=== PATIENT | female | born 1975 | race Caucasian/White ===

== ENCOUNTER 2020-05-28 06:35 | Outpatient (CLI) | payer OTHER, SELFPAY | END 2020-05-28 06:36 | disposition home or self-care (01) | PROVIDERS: PCP Internal Medicine; Visit Provider Internal Medicine | DX: E03.9 Hypothyroidism, unspecified (principal) | CPT/HCPCS: 36415; 84443 ==

== ENCOUNTER 2021-02-27 07:32 | Outpatient (CLI) | payer OTHER, SELFPAY ==
[2021-02-27 08:15] LABS: Alanine Aminotransferase 20 U/L (4-35); Alkaline Phosphatase 114 U/L (38-126); Anion Gap 8 mmol/L (8-16); Aspartate Amino Transferase 23 U/L (14-36); Bilirubin,Total 0.3 mg/dL (0.2-1.3); Blood Urea Nitrogen 10 mg/dL (7-17); Calcium 9.1 mg/dL (8.4-10.2); Carbon Dioxide 27 mmol/L (22-30); Chloride 106 mmol/L (98-107); Cholesterol 205 mg/dL (0-200); Estimated Glomerular Filt Rate > 60; Glucose 106 mg/dL (65-110); HDL Direct 37 mg/dL; Potassium 3.5 mmol/L (3.4-5.0); Sodium 141 mmol/L (137-145); Triglycerides 213 mg/dL (<150)
[2021-02-27 08:26] LABS: LDL Cholesterol Direct 96 mg/dL
[2021-02-27 09:48] LABS: Vitamin D 25 Hydroxy 30.8 ng/mL
== END 2021-02-27 07:33 | disposition home or self-care (01) ==
PROVIDERS: PCP Internal Medicine; Visit Provider Nurse Practitioner
DX: E03.9 Hypothyroidism, unspecified (principal); Z13.21 Encounter for screening for nutritional disorder
CPT/HCPCS: 36415; 80053; 80061; 82306; 84443

== ENCOUNTER 2021-05-20 09:40 | Outpatient (CLI) | payer OTHER, SELFPAY ==
[2021-05-20 10:54] LABS: Thyroid Stimulating Hormone 0.189 uIU/mL (0.465-4.680)
== END 2021-05-20 09:41 | disposition home or self-care (01) ==
LOC: ANHLAB 09:41
PROVIDERS: PCP Internal Medicine; Visit Provider Nurse Practitioner
DX: E03.9 Hypothyroidism, unspecified (principal)
CPT/HCPCS: 36415; 84443

== ENCOUNTER 2021-07-30 14:16 | Outpatient (CLI) | payer OTHER, SELFPAY ==
[2021-07-30 16:46] LABS: Free T4 Free Thyroxine 1.58 ng/mL (0.78-2.19)
== END 2021-07-30 14:17 | disposition home or self-care (01) ==
PROVIDERS: PCP Internal Medicine; Visit Provider Nurse Practitioner
DX: E03.9 Hypothyroidism, unspecified (principal)
CPT/HCPCS: 36415; 84439; 84443

== ENCOUNTER 2021-10-23 14:44 | Emergency (ER) | payer OTHER, SELFPAY ==
[2021-10-23 14:49] VITALS: BP 138/74; PULSE 112; RESP 18; TEMP 36.4; O2SAT 99
[2021-10-23] MEDS: KETOROLAC 30 MG/ML VIAL (*BKC) IV PUSH (17:11)
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
[2021-10-23] MEDS: SODIUM CHLORIDE 0.9% IV 1,000 ML 999 ML IV CONT (17:22)
[2021-10-23] MEDS: diazePAM INJ (*CRX) 10 MG/2 ML SYRINGE 5 MG IV PUSH (17:41)
[2021-10-23 19:20] VITALS: BP 143/72; PULSE 84; RESP 18; O2SAT 100
== END 2021-10-23 19:30 | disposition home or self-care (01) ==
PROVIDERS: Emergency Provider Emergency Medicine; PCP Internal Medicine
DX: M62.830 Muscle spasm of back (principal); E03.9 Hypothyroidism, unspecified; G25.81 Restless legs syndrome; F41.9 Anxiety disorder, unspecified; Y04.2XXA Assault by strike against or bumped into by another person, initial encounter
CPT/HCPCS: 96361; 96374; 96375; 99284; J1885; J3360; J7030

== ENCOUNTER 2022-02-10 13:16 | Outpatient (CLI) | payer OTHER, SELFPAY ==
[2022-02-10 14:48] LABS: Thyroid Stimulating Hormone 0.215 uIU/mL (0.465-4.680)
== END 2022-02-10 13:17 | disposition home or self-care (01) ==
LOC: ANHLAB 13:18
PROVIDERS: PCP Internal Medicine; Visit Provider Nurse Practitioner
DX: E03.9 Hypothyroidism, unspecified (principal)
CPT/HCPCS: 36415; 84443

== ENCOUNTER 2022-03-27 08:42 | Outpatient (CLI) | payer OTHER, SELFPAY ==
[2022-03-27 10:06] LABS: Thyroid Stimulating Hormone 0.274 uIU/mL (0.465-4.680)
[2022-03-27 10:23] LABS: Hepatitis C Virus Antibody Negative (Negative)
== END 2022-03-27 08:43 | disposition home or self-care (01) ==
PROVIDERS: PCP Internal Medicine; Visit Provider Nurse Practitioner
DX: Z20.5 Contact with and (suspected) exposure to viral hepatitis (principal); E03.9 Hypothyroidism, unspecified
CPT/HCPCS: 36415; 84439; 84443; 86803

== ENCOUNTER 2022-05-02 15:46 | Emergency (ER) | payer OTHER, SELFPAY ==
--- NOTE | ~2022-05-02 | XR_ITS ---
XR hand LT min 3V DATE: 05/02/2022 16:23 INDICATION: Roller skating today, fell. Left wrist pain. TECHNIQUE: 3 views COMPARISON: None FINDINGS: There is a mildly comminuted intra-articular fracture of the distal radius without signific ant displacement or angulation. No other fracture or dislocation. IMPRESSION: Mildly comminuted intra-articular fracture of distal radius, without significant displace ment Reviewed, dictated and finalized at location A. ISHING SPECIALIST IMPRESSION: Mildly comminuted intra-articular fracture of distal radius, withou t significant displacement
--- NOTE | ~2022-05-02 | XR_ITS ---
XR wrist LT min 3V DATE: 05/02/2022 16:22 INDICATION: Patient fell rollerskating today. Left wrist and hand pain TECHNIQUE: 4 views of left wrist COMPARISON: None FINDINGS: Transverse nondisplaced distal radial metaphyseal fracture without apparent intra-articular extension.. No other fracture or dislocation. IMPRESSION: Mildly impacted distal radial metaphyseal fracture Reviewed, dictated and finalized at location A. SEALER
[2022-05-02 16:07] VITALS: BP 130/89; PULSE 126; RESP 16; TEMP 36.9; O2SAT 100
[2022-05-02] MEDS: HYDROcodone/acetaminophen (*CRX) 5-325 MG TABLET 1 TAB PO (16:55)
--- NOTE | 2022-05-02 16:55 | ED.UPPEXIN ---
HPI - Extremity Injury (Upper) General Chief Complaint: Extremity Injury, Upper Stated Complaint: left wrist injury Time Seen by Provider: 05/02/22 16:06 History of Present Illness HPI narrative: 46-year-old female presents emergency room for evaluation of left wrist pain. Patient states that she was rollerskating, when she lost her balance and fell backward onto her outstretched arm. Patient is complaining of left wrist pain that is worse with movement. Patient reported immediate swelling to the area Related Data Allergies Allergy/AdvReac Type Severity Reaction Status Date / Time naproxen Allergy Severe Itching Verified 03/27/22 07:10 and vomiting latex Allergy Intermediate Rash Verified 03/27/22 07:10 nickel Allergy Intermediate Rash Verified 03/27/22 07:10 Review of Systems Review of Systems: CONSTITUTIONAL: Denies fever, chills, or sweats. EYES: Denies visual changes, redness, or discharge. ENT: Denies rhinorrhea, congestion, sore throat, or otalgia. CARDIOVASCULAR: Denies chest pain, palpitations, or edema. RESPIRATORY: Denies cough or dyspnea. GASTROINTESTINAL: Denies abdominal pain, nausea, vomiting, or diarrhea. GENITOURINARY: Denies dysuria or hematuria. SKIN: Denies rash or itching. MUSCULOSKELETAL: Reports left wrist pain NEUROLOGIC: Denies headache, numbness, dizziness, or weakness. PSYCHIATRIC: Denies anxiety or depression. PMFSH Past Medical History Medical History Anxiety Hypothyroidism Restless legs syndrome Family History Family History Sibling Patient's sister is in good health Patient's brother is in good health Grandparent Cerebrovascular accident, Onset Age: 77 Family history of throat cancer, Onset Age: 85 Mother Family history of malignant neoplasm of breast in first degree relative Acute myocardial infarction Father Family history of mental disorder Family history of lymphoma Social History Social History Smoking status: Never smoker Second hand tobacco smoke exposure: No Alcohol intake: never Substance use: never Substance use type: does not use Exam Narrative: GENERAL: Well-appearing, well-nourished, no physical limitations, and in no acute distress. HEAD: Normocephalic, atraumatic. EYES: Conjunctivae normal, PERRLA and EOMI. CHEST: Clear to auscultation. No respiratory distress. No wheezes rales or rhonchi. HEART: Regular rate and rhythm. No murmur heard. Normal peripheral pulses. EXTREMITIES: left wrist: +TTP with STS to the distal radius, LROM due to pain. Neurovascular is intact distally. No snuffbox tenderness SKIN: Warm, dry, no rash. No noted wounds NEURO: No focal deficits. Alert and oriented x3. MAEW. CN's II-XI intact bilaterally, normal gait PSYCH: Cooperative. Normal mood and affect. Course Vital Signs Vital signs: Vital Signs Temperature 36.9 C 05/02/22 16:07 Pulse Rate 126 H 05/02/22 16:07 Respiratory Rate 16 05/02/22 16:07 Blood Pressure 130/89 05/02/22 16:07 Pulse Oximetry 100 05/02/22 16:07 Temperature 36.9 C 05/02/22 16:07 Pulse Rate 126 H 05/02/22 16:07 Respiratory Rate 16 05/02/22 16:07 Blood Pressure 130/89 05/02/22 16:07 Pulse Oximetry 100 05/02/22 16:07 Discharge Plan Discharge Clinical Impression: Closed left radial fracture Patient Disposition: Home, Self-Care Condition: Stable Instructions: Antibiotic Form, Arm Fracture in Adults (DC) Prescriptions: New hydrocodone-acetaminophen 5-325 mg tablet 1 tablet PO Q8H PRN (Reason: pain) Qty: 15 0RF No Action ibuprofen 600 mg tablet 600 mg PO TID Qty: 20 0RF buspirone 15 mg tablet 15 mg PO BID Qty: 180 1RF alprazolam 0.5 mg tablet 0.5 mg PO TID Qty: 90 1RF clonazepam [Klonopin] 1 mg tablet 1.5 mg PO DAILY Qty
--- NOTE | 2022-05-02 17:09 | PC.NURSE ---
pt. tolerated splint placement well. Good cap refill and finger movement on affected side. No further questions from patient.
== END 2022-05-02 17:16 | disposition home or self-care (01) ==
PROVIDERS: Emergency Provider Nurse Practitioner Family; PCP Nurse Practitioner
DX: S59.202A Unspecified physeal fracture of lower end of radius, left arm, initial encounter for closed fracture (principal); E03.9 Hypothyroidism, unspecified; W18.39XA Other fall on same level, initial encounter; Y93.51 Activity, roller skating (inline) and skateboarding
CPT/HCPCS: 29125; 73110; 73130; 99284; A4565; A9270

== ENCOUNTER 2022-06-23 11:21 | Outpatient (RCR) | payer OTHER, SELFPAY ==
--- NOTE | 2022-06-23 16:15 | PTOPEVDC ---
Assessment and note entered by Lindsey Gomez, PT, DPT Thank you for referring Adriana De Jesus to [facility].? An evaluation has been completed. No further treatment is needed. Evaluation Information Assessment Status Evaluation Diagnosis L radius fracture Onset 05/02/22 Subjective Information Pt states she was roller skating and fell causing her to hyperextend her wrist. She has been immobilized since then. She is currently wearing a sling when out in public and also when she starts to get nerve pain. She states she has nerve pain daily. She is wearing an immobilizer and a compression sleeve, she also has her wrist and hand wrapped d/t getting a pressure ulcer. Reported Pain Level Pain Score 5: Self Report Assessment PT Clinical Summary Adriana presents to therapy today for her initial evaluation with a diagnosis of a distal radius fracture. Today she demonstrates a significantly decreased active wrist motion in all directions when compared to her uninvolved side. Her active wrist flexion and extension is currently ~15 deg in each direction, both limited by pain. 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 She demonstrates decreased finger and hand motion as well, in all directions. She has a blister in her thenar webspace. Skilled therapy services are indicated to address the deficits noted above and to return to baseline function. It was recommended that the patient be evaluated by OT, she will participate in her prescribed HEP until an OT order is obtained. She will be discharged at this time pending OT eval. Plan of Care Interventions Hot Pack/Cold Pack,Manual Therapy,Neuro Re- education,Patient/Caregiver Educati,Therapeutic Activities,Therapeutic Exercise PT Services Indicated No Treatment Frequency and to be discharged from PT, be evaluated by OT Duration
== END 2022-06-24 15:49 | disposition home or self-care (01) ==
LOC: ANHGOSHPT 11:21
PROVIDERS: PCP Nurse Practitioner; Visit Provider Orthopaedic Surgery
DX: S52.552D Other extraarticular fracture of lower end of left radius, subsequent encounter for closed fracture with routine healing (principal)
CPT/HCPCS: 97110; 97161

== ENCOUNTER 2022-07-27 12:30 | Outpatient (RCR) | payer OTHER, SELFPAY ==
--- NOTE | 2022-07-01 15:10 | OTOPEVAL1 ---
Assessment and note entered by ELIZA Velázquez/Ghada Evaluation Information Assessment Status Evaluation Diagnosis L UE distal radius fracture Subjective Information Patient presents to outpatient OT for a L UE distal radius fracture on 05/02/2022 (8 weeks prior). Patient has been in a splint since injuring wrist. Patient reports the swelling in hand has gone down significantly, is still experiencing pain in wrist, and decreased strength and active ROM. Reported Pain Level Pain Score 6: Self Report Assessment OT Clinical Summary Adriana is a 46 year old female who presents to outpatient OT following a L UE distal radius fracture ~8weeks ago. Patient reports increased pain and stiffness in hand/wrist, decreased functional use of L UE. Patient is still wearing splint, removes at home when resting for short periods of time. Per MDs note is to start weaning out of splint in the next 2-4 weeks. 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 Patient will benefit from skilled OT for HEP instruction, modalities, manual therapy for increasing functional use of L UE for daily tasks. Plan of Care Interventions Therapeutic Exercise,Manual Therapy,Therapeutic Activities,Hot Pack/Cold Pack,Paraffin OT Services Indicated Yes Treatment Frequency and 1x/week, 5 weeks Duration These treatments will address the objective and functional deficits as defined above. The patient will be advanced safely and appropriately in order for the patient to progress towards his/her prior level of function. Additional exercises will be introduced and as well as a comprehensive home exercise program upon discharge, if needed, ?to ensure carryover of functional gains achieved in the clinic. This treatment plan has been reviewed and agreement upon by the patient.
--- NOTE | 2022-07-22 13:20 | PCOTNOTE ---
Patient called & cancelled scheduled appointment this date due to being sick.
--- NOTE | 2022-08-03 13:30 | PCOTNOTE ---
Patient did not show up for scheduled appointment this date. Patient called on Wednesday when therapist was out of office, unsure if she should come for re-evaluation today 08/03/2022. Therapist called patient this AM prior to appointment and left message for patient to still come to appointment on this date. Will attempt to call and re-schedule re-evaluation/discharge.
--- NOTE | 2022-08-19 14:15 | OTOPDC ---
Assessment and note entered by ELIZA Velázquez/Ghada Evaluation Information Assessment Status Discharge - Pt Not Present Assessment OT Clinical Summary Adriana is a 46 year old female who presents to outpatient OT following a L UE distal radius fracture. She attended x2 treatments with OT prior to needing a re-evaluation. Patient was released from ortho doctor and reports did not know if she needed to complete re-evaluation with therapy. Called and left message with patient prior to re- evaluation to still attend appointment. Patient did not show for re-evaluation and attempted to call patient x2 times with no answer following scheduled re-evaluation. Patient is to be discharged from skilled OT at this time. Plan of Care OT Services Indicated No
== END 2022-08-20 08:56 | disposition home or self-care (01) ==
LOC: ANHGOSHOT 12:30
PROVIDERS: PCP Nurse Practitioner; Visit Provider Orthopaedic Surgery
DX: S52.552D Other extraarticular fracture of lower end of left radius, subsequent encounter for closed fracture with routine healing (principal)
CPT/HCPCS: 97018; 97110; 97165

== ENCOUNTER 2024-01-06 13:31 | Emergency (ER) | payer OTHER, SELFPAY ==
--- NOTE | ~2024-01-06 | XR_ITS ---
EXAMINATION: XR ankle LT min 3V, XR foot LT min 3V DATE: 01/06/2024 14:49 INDICATION: Medial left foot and ankle bruising post twisting injury 2 days prior TECHNIQUE: 1. Anteroposterior, mortise, additional oblique and lateral view of the left ankle were obtained. 2. Dorsoplantar, two oblique and lateral views of the left foot were obtained. COMPARISON: None. FINDINGS: Alignment of the left foot and ankle is normal. No fracture or osteochondral lesion. Joint spaces are well maintained. No ankle joint effusion. The soft tissues are unremarkable. IMPRESSION: 1. Negative left foot and ankle radiographs. Reviewed, dictated and finalized at location A. IMPRESSION: 1. Negative left foot and ankle radiographs.
--- NOTE | ~2024-01-06 | XR_ITS ---
EXAMINATION: XR thoracic spine 3V, XR lumbar spine 2-3V DATE: 01/06/2024 14:49 INDICATION: Back pain post fall TECHNIQUE: 1. One AP, lateral and lateral swimmer's views of the thoracic spine were obtained. 2. AP, lateral and coned-down lateral lumbosacral views of the lumbar spine were obtained. COMPARISON: Two-view chest radiograph dated 10/07/2016 FINDINGS: 11 degrees thoracic levoscoliosis measured between T3 and T11 and 20 degree lumbar dextroscoliosis me asured between T11 and L5. Sagittal alignment is normal. Unchanged chronic minimal anterior wedging a t T7 and T8. Remaining thoracic and lumbar vertebral body heights are normal. Severe disc height loss at L5-S1. Moderate disc height loss at T4-T5 and T5-T6 and mild disc height loss at the remaining th oracic levels and at L1-L2 and L4-L5. Visualized portion of lungs are clear with no pleural effusion or pneumothorax. Heart size is normal. Cholecystectomy clips in right upper quadrant. Mild osteoarthr itis at the bilateral sacroiliac joints. IMPRESSION: 1. Chronic mild anterior wedging at T7 and T8. No acute osseous abnormality in the thoracic or lumbar spine. 2. Mild S-shaped scoliosis of the thoracic and lumbar spine spondylosis, severe at the lumbosacral ju nction, moderate at multiple levels in the mid midthoracic spine and otherwise mild. Reviewed, dictated and finalized at location A. IMPRESSION: 1. Chronic mild anterior wedging at T7 and T8. No acute osseous abnormality in the thoracic or lumbar spine. 2. Mild S-shaped scoliosis of the thoracic and lumbar spine spondylosis, severe at the lumbosacral junction, moderate at multiple levels in the mid midthoraci c spine and otherwise mild.
[2024-01-06 13:40] VITALS: BP 132/71; PULSE 137; RESP 20; TEMP 36.3; O2SAT 100
--- NOTE | 2024-01-06 13:48 | ED.FALL ---
HPI - Fall General Chief Complaint: Fall Stated Complaint: fell Wednesday, left ankle pain & back pain Time Seen by Provider: 01/06/24 14:41 Focused HPI: 48-year-old female presents to the emergency room for evaluation of injury sustained in a fall 2 days ago. Patient states her right foot slipped causing her to fall forward, moderate left ankle struck the concrete and then she landed on her back. Patient states left ankle and foot pain is worse with ambulation. GENERAL: Well-appearing, well-nourished, and in no acute distress. HEAD: Normocephalic, atraumatic. CHEST: Clear to auscultation. No respiratory distress. HEART: Regular rate and rhythm. NEURO: Alert and oriented x3. Patient screened in triage and initial orders placed. Additional care and disposition to be based upon diagnostic testing and treatment. Related Data Allergies Allergy/AdvReac Type Severity Reaction Status Date / Time latex Allergy Severe Rash Verified 07/01/23 10:31 naproxen Allergy Severe Itching Verified 07/01/23 10:31 and vomiting nickel Allergy Severe Rash Verified 07/01/23 10:31 Review of Systems Review of Systems: ROS unremarkable except for noted in HPI PMFSH Past Medical History Medical History Anxiety Closed extra-articular fracture of distal end of left radius Hypothyroidism Periodic limb movement disorder Restless legs syndrome Surgical History Surgical History History of cholecystectomy 2015 Family History Family History Sibling Patient's sister is in good health Patient's brother is in good health Grandparent Cerebrovascular accident, Onset Age: 77 Family history of throat cancer, Onset Age: 85 Mother Family history of malignant neoplasm of breast in first degree relative Acute myocardial infarction Father Family history of mental disorder Family history of lymphoma Social History Social History Smoking status: Never smoker Second hand tobacco smoke exposure: No Alcohol intake: never Substance use: never Substance use type: does not use Lack of Transportation: No Lack of Food: Never True Current Housing: I Have Housing Concerned About Future Housing: No Difficulty Paying Gas/Electric Bills: No Difficulty Paying for Meds: No Currently Unemployed: No Education: Bachelor's Degree Difficulty w/ Childcare or Family Care: No Living arrangements: with family Occupation/Education: occupation 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 HEAD: Normocephalic, atraumatic. EYES: Conjunctivae normal, PERRLA and EOMI. CHEST: Clear to auscultation. No respiratory distress. No wheezes rales or rhonchi. No tenderness. HEART: Regular rate and rhythm. No murmur heard. Normal peripheral pulses. BACK: Midline thoracic/lumbar tenderness, no step-offs, no bony abnormality; FROM EXTREMITIES: Left foot: +TTP with STS to medial malleolus, no obvious bony abnormality. No joint laxity. SKIN: Warm, dry, no rash. No noted wounds NEURO: No focal deficits. Alert and oriented x3. MAEW. CN's II-XI intact bilaterally, antalgic gait PSYCH: Cooperative. Normal mood and affect. Course Vital Signs Vital signs: Vital Signs Temperature 36.3 C L 01/06/24 13:40 Pulse Rate 137 H 01/06/24 13:40 Respiratory Rate 20 01/06/24 13:40 Blood Pressure 132/71 01/06/24 13:40 Pulse Oximetry 100 01/06/24 13:40 Temperature 36.3 C L 01/06/24 13:40 Pulse Rate 137 H 01/06/24 13:40 Respiratory Rate 20 01/06/24 13:40 Blood Pressure 132/
== END 2024-01-06 15:46 | disposition home or self-care (01) ==
PROVIDERS: Emergency Provider Nurse Practitioner Family; PCP Nurse Practitioner
DX: S90.02XA Contusion of left ankle, initial encounter (principal); S90.32XA Contusion of left foot, initial encounter; S30.0XXA Contusion of lower back and pelvis, initial encounter; S20.229A Contusion of unspecified back wall of thorax, initial encounter; E03.9 Hypothyroidism, unspecified; G25.81 Restless legs syndrome; G47.61 Periodic limb movement disorder; Z90.49 Acquired absence of other specified parts of digestive tract; M41.9 Scoliosis, unspecified; M47.816 Spondylosis without myelopathy or radiculopathy, lumbar region; M47.814 Spondylosis without myelopathy or radiculopathy, thoracic region; W01.0XXA Fall on same level from slipping, tripping and stumbling without subsequent striking against object, initial encounter
CPT/HCPCS: 72072; 72100; 73610; 73630; 99284

== ENCOUNTER 2024-04-24 13:15 | Outpatient (RCR) | payer OTHER, SELFPAY ==
--- NOTE | 2024-03-07 16:54 | OPREHPOC ---
Outpatient Therapy Plan of Care This is a Multidisciplinary Plan of Care that may contain components documented by all disciplines (PT, OT, and ST.) PT Problem 1 PT Problem #1 Knowledge Deficit PT Goal 1 Goal / Goal Update Pt to be IND with issued HEP Target Visit 10 PT Problem 2 PT Problem #2 Pain PT Goal 1 Goal / Goal Update Pt to report back pain no greater than 3/10 in the last week. Target Visit 10 PT Goal 2 Goal / Goal Update Pt to report a 80% return to PLOF. Target Visit 10 PT Problem 3 PT Problem #3 Impaired Functional Mobil PT Goal 1 Goal / Goal Update Pt to demonstrate a functional lift and carry with 20lb from ground level without an increase in pain. Target Visit 10 PT Problem 4 PT Problem #4 Impaired Range of Motion PT Goal 1 Goal / Goal Update Pt to report pain free active lumbar and passive hip ROM. Target Visit 10
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
--- NOTE | 2024-04-06 15:57 | PTOPPROG ---
Assessment and note entered by Lindsey Gomez, PT, DPT Evaluation Information Assessment Status Progress Diagnosis low back pain Subjective Information Pt states her back and hips are doing better, she has been popping less. She states she has improved on getting in/out of the car and walking. She states she can sit up straighter without pain. She feels like overall she can move better with less pain. States she has take care of her dogs with less pain. She states she still has issues picking stuff up off the ground, carrying in groceries, and doing heavy house work. Assessment PT Clinical Summary Pt presents to therapy today for her progress report following 8 visits of skilled therapy to treat her acute low back pain after a fall. Pt demonstrates improved lumbar and LE mobility with decreased pain reports. She demonstrates improved movement tolerance and core strength. She continues to have limitations with daily tasks like carrying in groceries and standing tolerance. Overall she is making good progress towards her therapy goals. Continuation of skilled therapy services are indicated to improve functional mobility, manage pain, and to return to [facility]. Plan of Care Interventions Electrical Stimulation,Gait Training,Hot Pack/Cold Pack,Manual Therapy,Neuro Re-education,Patient/ Caregiver Educati,Therapeutic Activities, Therapeutic Exercise PT Services Indicated Yes Treatment Frequency and 2x/wk for 4 visits Duration These treatments will address the objective and functional deficits as defined above. The patient will be advanced safely and appropriately in order for the patient to progress towards his/her prior level of function. Additional exercises will be introduced and as well as a comprehensive home exercise program upon discharge, if needed, ?to ensure carryover of functional gains achieved in the clinic. This treatment plan has been reviewed and agreement upon by the patient.
--- NOTE | 2024-04-21 09:15 | PCPTNOTE ---
Patient canceled this date due to scheduling too many.
--- NOTE | 2024-04-24 14:38 | PTOPDC ---
Assessment and note entered by Lindsey Gomez, PT, DPT Evaluation Information Assessment Status Discharge Diagnosis low back pain Subjective Information Pt states it feels like her pain is moving around a bit, but overall is better than when she started therapy. She has been taking more frequent consumer loan underwriter trips when carrying things into her home to help control pain. Pt states sleep is still hard because she cannot get comfortable when laying down. She states she has not gotten as many shooting pains as she was getting, still get burning sensations if she is shooting for too long . Pt states her neck pain has improved as well. She states Reported Pain Level Pain Score 4: Self Report Assessment PT Clinical Summary Pt presents to therapy today for her progress report following 11 visits of skilled therapy to treat her acute low back pain after a fall. Pt reports improving pain reports and demonstrates improved functional mobility during therapy treatments. She continues to report intermittent popping sensations during exercise and daily tasks but states these are not painful. Pt would like to continue working on her exercises IND at this time, she states she is unsure what is mechanical pain and what is psychosomatic pain.
== END 2024-04-24 14:53 | disposition home or self-care (01) ==
LOC: ANHGOSHPT 13:15
PROVIDERS: PCP Nurse Practitioner; Visit Provider Nurse Practitioner
DX: M41.9 Scoliosis, unspecified (principal); M47.816 Spondylosis without myelopathy or radiculopathy, lumbar region
CPT/HCPCS: 97014; 97110; 97140; 97161; 97530; G0283

== ENCOUNTER 2024-09-04 15:08 | Inpatient (IN) | payer OTHER, SELFPAY ==
--- NOTE | ~2024-09-04 | XR_ITS ---
XR elbow RT min 3V Ordering provider: Fadumo Baron History: . R elbow pain s/p dog bite . Comparison: December 15, 2018 FINDINGS: BONES: No acute fracture or dislocation. JOINT SPACES: Normal. SOFT TISSUES: Unremarkable. No definite joint effusion. IMPRESSION: No acute osseous abnormality of the right elbow. Reviewed, dictated and finalized at location A.
--- NOTE | ~2024-09-04 | XR_ITS ---
CHEST RADIOGRAPH CLINICAL HISTORY: cough . COMPARISON: 02/14/2020 TECHNIQUE: Single portable view of the chest. FINDINGS The cardiomediastinal silhouette is unremarkable. The lungs are clear. Visualized osseous structures and soft tissues are unremarkable. IMPRESSION: No focal infiltrate or effusion. Reviewed, dictated and finalized at location A.
[2024-09-04 15:39] VITALS: BP 141/69; PULSE 105; RESP 20; TEMP 36.4; O2SAT 100
--- NOTE | 2024-09-04 15:48 | ED.GENADULT ---
HPI - General Adult General Chief complaint: Unspecified <Fadumo Baron APRN - Last Filed: 09/04/24 15:52> Stated complaint: flu sx's, dog bite <Fadumo Baron APRN - Last Filed: 09/04/24 15:52> Time Seen by Provider: 09/04/24 19:45 <Fadumo Baron APRN - Last Filed: 09/04/24 15:52> Focused HPI: Patient is a 48-year-old female who presents to the ER with a dog bite to her right arm. She reports the dog bit her on on August 30, 2024. Patient reports she did not come in for evaluation since the site has swelled up and she started noticing pus coming from the site. Yesterday patient started experiencing flu-like symptoms. Patient endorses a medical history of anxiety due to the recent passing of her . She is unsure when she last received her tetanus shot. Patient reports and dog is up-to-date on immunizations. She denies any shortness of breath, decreased range of motion, numbness or tingling in her extremity. GENERAL: Well-appearing, well-nourished, and in no acute distress. HEAD: Normocephalic, atraumatic. CHEST: Clear to auscultation. ?No respiratory distress. HEART: Tachycardia, regular rhythm? NEURO: ?Alert and oriented x3. Patient screened in triage and initial orders placed.? ?Additional care and disposition to be based upon?diagnostic testing and treatment. <Fadumo Baron APRN - Last Filed: 09/04/24 15:52> History of Present Illness HPI narrative: Patient is a 48-year-old female who presents emergency department with chief complaint of dog bite to right upper extremity patient reports that she was bit on the 12th by her dog reported that she knows some redness and pus draining from the ear the patient also reports some upper respiratory symptoms and is concerned she may have the flu <Darvin Gibson MD - Last Filed: 09/04/24 21:06> Related Data Allergies/adverse reactions: Allergies Allergy/AdvReac Type Severity Reaction Status Date / Time latex Allergy Severe Rash Verified 09/04/24 19:13 naproxen Allergy Severe Itching Verified 09/04/24 19:13 and vomiting nickel Allergy Severe Rash Verified 09/04/24 19:13 adhesive tape AdvReac Intermediate Rash Verified 09/04/24 19:13 diphenhydramine (From AdvReac Intermediate rapid Verified 09/04/24 19:13 Benadryl) heart rate <Fadumo Baron APRN - Last Filed: 09/04/24 15:52> Review of Systems Review of Systems: A 10 system review of systems was completed on the patient and is negative except for what is stated in the HPI. Nursing and ancillary documentation was reviewed. <Darvin Gibson MD - Last Filed: 09/04/24 21:06> [facility] Past Medical History Medical History: Medical History BMI 29.0-29.9,adult Periodic limb movement disorder Closed extra-articular fracture of distal end of left radius Anxiety Hypothyroidism Restless legs syndrome <Fadumo Baron APRN - Last Filed: 09/04/24 15:52> Surgical History Surgical History: Surgical History History of cholecystectomy 2016 <Fadumo Baron APRN - Last Filed: 09/04/24 15:52> Family History Family History: Family History Sibling Patient's sister is in good health Patient's brother is in good health Grandparent Cerebrovascular accident, Onset Age: 77 Family history of throat cancer, Onset Age: 85 Mother Family history of malignant neoplasm of breast in first degree relative Acute myocardial infarction Father Family history of mental disorder Family history of lymphoma <Fadumo Baron APRN - Last Filed: 09/04/24 15:52> Social History Social History: Social History Smoking status: Never smoker Second hand tobacco smoke exposure: No Alcohol intake: never Substance use: never Substance use type: does not use Do You Feel Safe in your Home?: Yes Lack of Transportation: No Lack of Food: Never True Current Housing: I Have Housing Concerned About Future Housing: No Difficulty Paying Gas/Electric Bills: No Difficulty Paying for Meds: No Currently Unemployed: No Education: Bachelor's Degree Difficulty w/ Childcare or Family Care: No Living arrangements: alone Additional living arrangements comments: Recently Occupation/Education: unemployed 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 Gender identity (if verbalized by the patient): Female <Fadumo Baron APRN - Last Filed: 09/04/24 15:52> Exam Narrative: GENERAL: Well-appearing, well-nourished, and in no acute distress. HEAD: Normocephalic, atraumatic. EYES: PERRLA and EOMI. ENT: Nares clear, no rhinorrhea or epistaxis. Mucous membranes moist. NECK: Supple. CHEST: Clear to auscultation. No respiratory distress. HEART: Regular rate and rhythm. No murmur heard. Normal peripheral pulses. ABDOMEN: Soft, nontender, nondistended, normal active bowel sounds. EXTREMITIES: Normal range of motion. No edema. SKIN: Warm, dry, no rash. There is an area of erythema in the right upper extremity there is a small wound that has purulent drainage NEURO: No focal deficits. Alert and oriented x3. PSYCH: Normal mood and affect. <Darvin Gibson MD - Last Filed: 09/04/24 21:06> Course Vital Signs Vital signs: Vital Signs Temperature 36.4 C 09/04/24 15:39 Pulse Rate 105 H 09/04/24 15:39 Respiratory Rate 20 09/04/24 15:39 Blood Pressure 141/69 H 09/04/24 15:39 Pulse Oximetry 100 09/04/24 15:39 Temperature 36.6 C 09/04/24 19:19 Pulse Rate 89 09/04/24 19:19 Respiratory Rate 16 09/04/24 19:19 Blood Pressure 142/68 H 09/04/24 19:19 Pulse Oximetry 100 09/04/24 19:19 <Fadumo Baron APRN - Last Filed: 09/04/24 15:52> Vital Signs Temperature 36.4 C 09/04/24 15:39 Pulse Rate 105 H 09/04/24 15:39 Respiratory Rate 20 09/04/24 15:39 Blood Pressure 141/69 H 09/04/24 15:39 Pulse Oximetry 100 09/04/24 15:39 Temperature 36.6 C 09/04/24 19:19 Pulse Rate 89 09/04/24 19:19 Respiratory Rate 16 09/04/24 19:19 Blood Pressure 142/68 H 09/04/24 19:19 Pulse Oximetry 100 09/04/24 19:19 <Darvin Gibson MD - Last Filed: 09/04/24 21:06> Medical Decision Making MDM Narrative Medical decision making narrative: Differential diagnosis includes influenza, cellulitis, infected puncture wound Plain film x-ray showed no acute abnormality patient was influenza B positive Chest x-ray showed no focal infiltrate Patient will be started on Unasyn case was discussed with the hospitalist for admission <Darvin Gibson MD - Last Filed: 09/04/24 21:06> Vital Signs Vital Signs: Vital Signs Temperature 36.4 C 09/04/24 15:39 Pulse Rate 105 H 09/04/24 15:39 Respiratory Rate 20 09/04/24 15:39 Blood Pressure 141/69 H 09/04/24 15:39 Pulse Oximetry 100 09/04/24 15:39 Temperature 36.6 C 09/04/24 19:19 Pulse Rate 89 09/04/24 19:19 Respiratory Rate 16 09/04/24 19:19 Blood Pressure 142/68 H 09/04/24 19:19 Pulse Oximetry 100 09/04/24 19:19 <aFdumo Baron APRN - Last Filed: 09/04/24 15:52> Vital Signs Temperature 36.4 C 09/04/24 15:39 Pulse Rate 105 H 09/04/24 15:39 Respiratory Rate 20 09/04/24 15:39 Blood Pressure 141/69 H 09/04/24 15:39 Pulse Oximetry 100 09/04/24 15:39 Temperature 36.6 C 09/04/24 19:19 Pulse Rate 89 09/04/24 19:19 Respiratory Rate 16 09/04/24 19:19 Blood Pressure 142/68 H 09/04/24 19:19 Pulse Oximetry 100 09/04/24 19:19 <Darvin Gibson MD - Last Filed: 09/04/24 21:06> Lab Data Result diagrams: 09/04/24 18:52 09/04/24 18:52 <Fadumo Baron, KNITTING MACHINE MECHANIC - Last Filed: 09/04/24 15:52> Labs: Lab Results 09/04/24 Range/Units 18:52 WBC 4.0 L (4.5-10.0) K/mm3 RBC 4.01 L (4.2-5.4) M/mm3 Hgb 12.9 (12.0-15.0) g/dL Hct 38.6 (37.0-47.0) % MCV 96.3 (80-100) fl MCH 32.2 (26-34) pg MCHC 33.4 (32-36) g/dl RDW 12.4 (11.5-14.5) % Plt Count 216 (150-375) k/mm3 MPV 8.3 (7.4-10.4) fl Immature Gran % (Auto) 1.3 H (0-0.5) % Neut % (Auto) 54.6 (45.5-73.1) % Lymph % (Auto) 34.8 (18.3-44.2) % [place] % (Auto) 8.8 H (2.6-8.5) % Eos % (Auto) 0.0 (0-4.4) % Baso % (Auto) 0.5 (0.2-1.2) % Lymph # (Auto) 1.39 (0.9-3.2) K/mm3 [place] # (Auto) 0.4 (0.1-0.6) K/mm3 Eos # (Auto) 0.0 (0-0.3) K/mm3 Baso # (Auto) 0.0 (0.0-0.1) K/mm3 Abs Immat Gran (auto) 0.05 H (0.00-0.031) K/mm3 Absolute Neuts (auto) 2.2 (1.3-6.7) K/mm3 Absolute Nucleated RBC 0.000 (0.0-0.012) K/mm3 Nucleated RBC % 0.0 (0.0-0.2) % Sodium 139 (137-145) mmol/L Potassium 4.1 (3.4-5.0) mmol/L Chloride 104 (98-107) mmol/L Carbon Dioxide 24 (22-30) mmol/L Anion Gap 11 (4-12) mmol/L BUN 15 D (7-17) mg/dL Creatinine 0.73 (0.7-1.0) mg/dL Estim Creat Clear Calc 84 ml/min Estimated GFR > 60 (59 - ) Glucose 97 (65-110) mg/dL Lactic Acid < 0.5 L (0.7-2.0) mmol/L Calcium 9.0 (8.4-10.2) mg/dL Total Bilirubin 0.3 (0.2-1.3) mg/dL AST 41 H (14-36) U/L ALT 37 H (6-35) U/L Alkaline Phosphatase 125 (38-126) U/L Total Protein 8.0 (6.3-8.2) g/dL Albumin 4.2 (3.5-5.1) g/dL Influenza A (RT-PCR) Negative (Negative) Influenza B (RT-PCR) Positive A (Negative) RSV (RT-PCR) Negative (Negative) SARS-CoV-2 RNA (RT-PCR) Negative (Negative) <Fadumo Baron, KNITTING MACHINE MECHANIC - Last Filed: 09/04/24 15:52> Lab Results 09/04/24 Range/Units 18:52 WBC 4.0 L (4.5-10.0) K/mm3 RBC 4.01 L (4.2-5.4) M/mm3 Hgb 12.9 (12.0-15.0) g/dL Hct 38.6 (37.0-47.0) % MCV 96.3 (80-100) fl MCH 32.2 (26-34) pg MCHC 33.4 (32-36) g/dl RDW 12.4 (11.5-14.5) % Plt Count 216 (150-375) k/mm3 MPV 8.3 (7.4-10.4) fl Immature Gran % (Auto) 1.3 H (0-0.5) % Neut % (Auto) 54.6 (45.5-73.1) % Lymph % (Auto) 34.8 (18.3-44.2) % [place] % (Auto) 8.8 H (2.6-8.5) % Eos % (Auto) 0.0 (0-4.4) % Baso % (Auto) 0.5 (0.2-1.2) % Lymph # (Auto) 1.39 (0.9-3.2) K/mm3 [place] # (Auto) 0.4 (0.1-0.6) K/mm3 Eos # (Auto) 0.0 (0-0.3) K/mm3 Baso # (Auto) 0.0 (0.0-0.1) K/mm3 Abs Immat Gran (auto) 0.05 H (0.00-0.031) K/mm3 Absolute Neuts (auto) 2.2 (1.3-6.7) K/mm3 Absolute Nucleated RBC 0.000 (0.0-0.012) K/mm3 Nucleated RBC % 0.0 (0.0-0.2) % Sodium 139 (137-145) mmol/L Potassium 4.1 (3.4-5.0) mmol/L Chloride 104 (98-107) mmol/L Carbon Dioxide 24 (22-30) mmol/L Anion Gap 11 (4-12) mmol/L BUN 15 D (7-17) mg/dL Creatinine 0.73 (0.7-1.0) mg/dL Estim Creat Clear Calc 84 ml/min Estimated GFR > 60 (59 - ) Glucose 97 (65-110) mg/dL Lactic Acid < 0.5 L (0.7-2.0) mmol/L Calcium 9.0 (8.4-10.2) mg/dL Total Bilirubin 0.3 (0.2-1.3) mg/dL AST 41 H (14-36) U/L ALT 37 H (6-35) U/L Alkaline Phosphatase 125 (38-126) U/L Total Protein 8.0 (6.3-8.2) g/dL Albumin 4.2 (3.5-5.1) g/dL Influenza A (RT-PCR) Negative (Negative) Influenza B (RT-PCR) Positive A (Negative) RSV (RT-PCR) Negative (Negative) SARS-CoV-2 RNA (RT-PCR) Negative (Negative) <Darvin Gibson MD - Last Filed: 09/04/24 21:06> Discharge Plan Discharge Clinical Impression: Dog bite of right arm, Cellulitis of arm, right, Influenza B <Fadumo Baron APRN - Last Filed: 09/04/24 15:52> Patient Disposition: Still a Patient <Fadumo Baron APRN - Last Filed: 09/04/24 15:52> Condition: Stable <Fadumo Baron APRN - Last Filed: 09/04/24 15:52> Patient Language: Italian <Fadumo Baron APRN - Last Filed: 09/04/24 15:52> Prescriptions: No Action ibuprofen 600 mg tablet 600 mg PO TID Qty: 20 0RF levothyroxine 125 mcg tablet 125 mcg PO DAILY Qty: 30 6RF buspirone 15 mg tablet 15 mg PO BID Qty: 180 1RF trazodone 100 mg tablet See Rx Instructions .ROUTE .COMPLEX Qty: 30 5RF Dose Instruction: TAKE ONE TABLET BY MOUTH EVERY NIGHT AT BEDTIME NEEDED FOR FOR SLEEP Rx Instructions: TAKE ONE TABLET BY MOUTH EVERY NIGHT AT BEDTIME NEEDED FOR FOR SLEEP clonazepam [Klonopin] 1 mg tablet 1.5 mg PO DAILY Qty: 45 0RF alprazolam 0.5 mg tablet 0.5 mg PO TID PRN (Reason: anxiety) Qty: 90 0RF Rx Instructions: Fill on/after 08/19 modafinil 200 mg tablet 200 mg PO BID Qty: 60 0RF <Fadumo Baron APRN - Last Filed: 09/04/24 15:52> Follow-up/Referrals: Tyson Brantley APRN [Primary Care Provider] - <Fadumo Baron APRN - Last Filed: 09/04/24 15:52> Time of Disposition: 21:06 <Fadumo Baron APRN - Last Filed: 09/04/24 15:52> 21:06 <Darvin Gibson MD - Last Filed: 09/04/24 21:06>
--- OUTSIDE RECORDS SUMMARY | 2024-09-04 17:55 | XMS_ITS | Referral Summary ---
Author Organization [facility] Address [address] [place] [address] Care Team Providers Care Brim Ironer Hand Name Role Phone Kj Winters MD Primary Care Provider [phone] Source Comments [facility],non-owned Affiliates and Associated Physician Practices is amultiple site organization consisting of ambulatory clinics and hospital sitesin [place], [place], [place] and [place]. This disclosure is being madepursuant to the Care Everywhere program and may not contain all information available regarding this patient. Last updated 18.[facility] [employer] Allergies No known active allergies Social History Tobacco Use Types Packs/Day Years Used Date Smoking Tobacco: Never Assessed Sex and Gender Information Value Date Recorded Sex Assigned at Not on file Gender Identity Not on file Sexual Orientation Not on file Last Filed Vital Signs Vital Sign Reading Time Taken Comments Blood Pressure 100/60 03/25/2015 1:09 PM CDT Pulse - - Temperature - - Respiratory Rate - - Oxygen Saturation - - Inhaled Oxygen Concentration - - Weight 76.2 kg (168 lb) 03/25/2015 1:09 PM CDT Height 165.1 cm (5' 5 ) 03/25/2015 1:09 PM CDT Body Mass Index 27.96 03/25/2015 1:09 PM CDT Plan of Treatment Not on file Procedures Procedure Name Priority Date/Time Associated Diagnosis Comments PAP IMAGE-GUIDED W HPV Routine 04/19/2013 from Last 3 Months or Most Recently Relevant to Health Maintenance Results * PAP IMAGE-GUIDED LIQUID BASE W HPV (04/19/2013) Endocervical 04/19/2013 Narrative [facility] - 04/25/2013 10:46 AM DIRECT SUPPORT WORKER LMP->04/15/13 Marty German MD LAB - PATHOLOGY/CYT OLOGY ORDERABLES [facility] [address] [place] [address], [facility] from Last 3 Months or Most Recently Relevant to Health Maintenance Care Teams Brim Ironer Hand Relationship Specialty Start Date End Date Kj Winters MD [address] [place] [id number] PCP - General Internal Medicine 04/20/13
--- OUTSIDE RECORDS SUMMARY | 2024-09-04 17:55 | XMS_ITS | Data Portability ---
Author Organization [facility] ANDREIN[facility] Garcia Address [address] [place] [address] Care Team Providers Care Research And Development Director Name Role Phone MARTY BERNSTEIN Primary Care Provider [phone] Assessment Encounter Date Assessment Date Assessment LastModified by Organization Details LastModified Time 03/20/2024 03/20/2024 I will get some baseline blood work start her on citalopram get records from her previous doctor verify her medications she is a S referral follow up with me in 3 weeks if she has any thoughts of suicide or feels that her mental status is getting worse that she can go to the emergency room. [email or web address] Not available 04/09/2024 16:01:47 Plan of Treatment Reminders Order Date Submit Date Provider Last Modified By Organization Details Last Modified Time Details Appointments None recorded. Lab lipid panel, serum 2023 024 elia [facility], [address], [place], [address], 5 09:27:36 TSH, ultra-sens itive, serum 2023 024 jbirama [facility], [address], [place], [address], 5 09:27:35 T3, free, serum or plasma 2023 024 jbakbar [facility], [address], [place], [address], 5 09:27:35 T4, free, serum 2023 024 [facility], [address], [place], [address], 5 09:27:35 CMP, serum or plasma 2023 024 [facility], [address], [place], [address], 5 09:27:36 CBC w/ auto diff 2023 024 [facility], [address], [place], [address], 5 09:27:36 Referral None recorded. Procedures None recorded. Surgeries None recorded. Imaging None recorded. Medication Orders citalopram [address] [facility] [address] [place], [address], 4 17:51:36 Patient TargetsNo targets recorded. Patient InstructionsNo instructions recorded. Reason for Referral None Reported. Problems Name Problem SNOMED Code Status Onset Date Resolution Date Notes Provider Name and Address Organization Details Recorded Time Hypothyroidism 79280239 Active 2023 THOMAS [place], [place] - [place] 4 15:35:21 Anxiety 67619041 Active 2023 THOMAS [place], [place] 4 15:35:22 Fatigue 23947667 Active 2023 En Bond MA null, [place] - [facility] 4 15:35:23 Problem Notes None recorded. Procedures Surgical History Date Name Laterality Status Provider Name and Address Organization Details Recorded Time 06/21/19 17 cholecystectomy completed THOMAS Tyson - [place] 03/20/2024 15:02:34 Imaging Results None recorded. Procedure Notes None recorded. Medical Equipment None Reported. Allergies Allergen ID Allergen Name Allergen Category Reaction Reaction Severity Criticality Documentation Date Start Date Code Code System Note Provider Name and Address Organization Details Recorded Time 17730826 naproxen medicatio n vomiting severe high 03/20/2024 7258 RxNorm Not Available Not Available Not Available 17730827 Benadryl medicatio n itching moderate Not available 03/20/202419719 7 RxNorm Not Available Not Available Not Available Medications Name Sig Start Date Stop Date Status Note LastModified by Organization Details LastModified Time amoxicillin 500 mg capsule TAKE 1 CAPSULE BY MOUTH THREE TIMES DAILY UNTIL GONE 03/20 completed Not Available Not Available Not Available methocarbam ol 500 mg tablet TAKE 1 TABLET BY MOUTH THREE TIMES DAILY 03/20 completed Not Available Not Available Not Available citalopram 10 mg tablet Take 1 tablet every day by oral route. 2023 active Not Available Not Available Not Avai lable hydrocodone 5 mg-acetamin ophen 325 mg tablet TAKE 1 TABLET BY MOUTH EVERY 8 HOURS NEEDED FOR PAIN 03/20 completed Not Available Not Available Not Available clonazepam 1 mg tablet TAKE 1 & 1/2 (ONE & ONE-HALF) TABLETS BY MOUTH ONCE DAILY FOR RESTLESS LEG SYNDROME active Not Available Not Available No t Available alprazolam 0.5 mg tablet TAKE 1 TABLET BY MOUTH THREE TIMES DAILY NEEDED FOR ANXIETY active Not Available Not Available No t Available modafinil 200 mg tablet TAKE 1 TABLET BY MOUTH TWICE DAILY IN THE MORNING AND THE AFTERNOON active Not Available Not Available No t Available trazodone 100 mg tablet active Not Available Not Available Not Available levothyroxi ne 125 mcg tablet TAKE 1 TABLET BY MOUTH ONCE DAILY active Not Available Not Available No t Available levothyroxi ne 112 mcg tablet TAKE 1 TABLET BY MOUTH ONCE DAILY 03/20 completed Not Available Not Available Not Available buspirone 15 mg tablet TAKE 1 TABLET BY MOUTH TWICE DAILY active Not Available Not Available No t Available Vitals Date Recorded Body height Body mass index (BMI) Body weight Heart rate Oxygen saturation Oxygen saturation in Arterial blood by Pulse oximetry Systolic blood pressure Diastolic blood pressure Provider Name and Address Organization Details Last Updated DateTime 4 165.1 cm 30.2 kg/m2 17714.9 4 g 120 /min 98 % 98 % 108 mm[Hg] 78 mm[Hg] Elizabeth Rosado [place] - [facility] 4 14:54:15 Social History Question Answer Notes LastModified by Organizat ion Details LastModified Time Tobacco Smoking Status Never Smoker Elizabeth Rosado MA [facility], [place] - [facility] 03/20/2024 14:48:25 Do You Have An Advance Directive? No Information n ot available 03/20/2024 What Is Your Level Of Alcohol Consumption? None Information not available 03/20/2024 Are You Blind Or Do You Have Difficulty Seeing? No Information n ot available 03/20/2024 What Is Your Level Of Caffeine Consumption? None Information not available 03/20/2024 In The 14 Days Before Symptom Onset, Have You Had Close Contact With A Laboratory-confirm ed COVID-19 While That Case Was Ill? No Information n ot available 03/20/2024 In The 14 Days Before Symptom Onset, Have You Had Close Contact With A Person Who Is Under Investigation For COVID-19 While That Person Was Ill? No Information not available 03/20/2024 Have You Been To An Area Known To Be High Risk For COVID-19? No Information not available 03/20/2024 Are You Deaf Or Do You Have Serious Difficulty Hearing? No Information not available 03/20/2024 What Type Of Diet Are You Following? REGULAR Information n ot available 03/20/2024 Are There Any Guns Present In Your Home? No Information not available 03/20/2024 What Was The Date Of Your Most Recent Tobacco Screening? 03/20/2024 Information not available 03/20/2024 What Is Your Relationship Status? Information not available 03/20/2024 Do You Use Your Seat Belt Or Car Seat Routinely? Yes Information not available 03/20/2024 Do You Have Smoke And Carbon Monoxide Detectors In Your Home? Yes Information not available 03/20/2024 Do You Feel Stressed (tense, Restless, Nervous, Or Anxious, Or Unable To Sleep At Night)? [id number] Information not available 03/20/2024 Do You Use Any Illicit Or Recreational Drugs? No Information not available 03/20/2024 Do You Use Sunscreen Routinely? Yes Information not available 03/20/2024 Do You Or Have You Ever Used Any Other Forms Of Tobacco Or Nicotine? No Information not available 03/20/2024 Sex: Female Functional Status Question Answer Note LastModified by Organization D etails LastModified Time Are you able to care for yourself? Yes Information n ot available 03/20/2024 Mental Status None recorded. Family History Relationship Description Onset Age of this Age Resolved Age Notes LastModified by Organization Details LastModified Time Mother Disorder of thyroid gland [email or web address] Not available 2023 14:57:39 Medical History Condition Response Coronary Artery Disease N Other Y High Blood Pressure N Atrial Fibrillation N Kidney or Bladder Problems N Thyroid Problems Y GI Problems N Depression Y COPD N Blood Clots N Skin Problems Y Anemia N Heart Attack ([place]) N Anxiety Disorder Y Diabetes N Muscle, Joint, or Bone Problems Y Seizures/Epilepsy N Acid Reflux (GERD) N Cancer N Stroke N Asthma N Allergies Y High Cholesterol N Hepatitis N Liver Disease N Headaches N Heart Failure N Osteoporosis N Gynecological HistoryNo gynecological history recorded. Obstetrics History GPAL:G 0 P 0 0 0 0 Immunizations Vaccine Type Date Status Note Provider Nam e and Address Organization Details Recorded Time COVID-19, mRNA, LNP-S, PF, 30 mcg/0.3 mL dose 06/28/2020 completed THOMAS [place], [place] - [facility] 04/11/2024 16:23:55 COVID-19, mRNA, LNP-S, PF, 30 mcg/0.3 mL dose 04/25/2021 completed THOMAS [place], [place] - [facility] 04/11/2024 16:23:55 COVID-19, mRNA, LNP-S, PF, 30 mcg/0.3 mL dose 06/07/2020 completed Gudelia Hya [place] null, [place] - [facility] 04/11/2024 16:23:55 COVID-19, mRNA, LNP-S, PF, gerhard-sucrose, 30 mcg/0.3 mL 04/08/2023 completed THOMAS [place], [place] - [facility] 04/11/2024 16:23:55 Influenza, high-dose, trivalent, PF 07/12/2014 completed THOMAS [place], [place] - [facility] 04/11/2024 16:23:55 Past Encounters Encounter ID Performer Location Encounter Start Date Encounter Closed Date Diagnosis/Indication Diagnosis SNOMED-CT Code Diagnosis ICD10 Code Diagnosis Note [id number] Marty Bernstein [facility] [address] [place] [address] 03/20/2024 14:29:58 03/20/2024 15:34:32 Hypothyroidism 92843983 E03.9 Anxiety 61791011 F41.9 Fatigue 26391498 R53.83 Screening for cardiovascular system disease 428558559 Z13.6 Depressive disorder 3548 9007 F32.A Health Concerns Section Related Observation LastModified by Organization Detai ls LastModified Time None Recorded Concern Status LastModified by Organization Details LastModified Time None Recorded Advance Directives Directive N: Payers Encounter Date Sequence Insurance Name Policy Number Policy Zavaleta Covered Member ID Zavaleta Member ID Guarantor Name 03/20/2024 1 [facility] (MEDICAID HMO) [id number] Adriana De Jesus [id number] Adriana De Jesus Notes Date Note Type Note Provider Name and Address Organization Details Recorded Time 03/20/2024 text/html reads 8-year-old comes in to establish care history of hypothyroidism and restless legs syndrome she is also under the care of Dr. Brown for anxiety and insomnia. She takes modafinil levothyroxine clonazepam alprazolam allergies latex surgeries gallbladder mother at 69 from breast cancer father from non-Hodgkin lymphoma in the past year does not denies smoking vaping or drinking she has been going through a lot of problems dealing with the of her it was sudden crying spells no SI or HI she does have some sleep disturbance Marty Bernstein MD Attn: Accounting[address] [facility], [place], [address], [facility] 04/09/2024 16:02:42 OBGyn Episode No OBEpisode recorded.
--- OUTSIDE RECORDS SUMMARY | 2024-09-04 17:55 | XMS_ITS | Clinical Summary ---
Author Organization [facility] App47 Address [address] [facility] [facility] [place] [address] Care Team Providers Care French Drawer Name Role Phone Kj Winters MD Primary Care Provider [phone] Source Comments [facility],non-owned Affiliates and Associated Physician Practices is amultiple site organization consisting of ambulatory clinics and hospital sitesin [place], [place], [place] and [place]. This disclosure is being madepursuant to the Care Everywhere program and may not contain all information available regarding this patient. Last updated 18.[facility] Allergies No known active allergies Social History [...] 03/25/2015 1:09 PM CDT Plan of Treatment Health Maintenance Due Date Last Done Comments COLOGUARD (AGES 45-75) - COL ON CA SCREENING 1976 COLON MONITORING 1976 COLONOSCOPY - COLON CA SCREENING 1976 CT COLONOGRAPHY - COLON CA SCREENING 1976 Colorectal Cancer Screening 1976 FIT - COLON CA SCREENING 1976 FLEX SIG - COLON CA SCREENING 1976 LIPID TESTING 1976 MAMMOGRAM 1976 HIV SCREENING 10/26/1991 HEPATITIS C SCREENING 10/21/1994 DTAP/TDAP/TD VACCINES (1 - Tdap) 10/26/1995 HEPATITIS B VACCINE (1 of 3 - 19+ 3-dose series) 10/26/1995 PAP SMEAR 04/19/2016 04/19/2013 COVID-19 VACCINE (1 - 2023-2 5 season) 2024 INFLUENZA VACCINE (#1) 2024 DEPRESSION SCREENING 06/21/2024 ZOSTER VACCINE (1 of 2) 2026 HIB VACCINE Aged Out No longer eligi ble based on patient's age to complete this topic HPV VACCINE Aged Out No longer eligi ble based on patient's age to complete this topic MENINGOCOCCAL (Group B) VACC INE SHARED DECISION-MAKING Aged Out No longer eligibl e based on patient's age to complete this topic MENINGOCOCCAL GROUPS A/C/Y/W VACCINE Aged Out No longer eligible b ased on patient's age to complete this topic PNEUMOCOCCAL VACCINE Aged Out No long er eligible based on patient's age to complete this topic Procedures Procedure Name Priority Date/Time Associated Diagnosis Comments PAP IMAGE-GUIDED W HPV Routine 04/19/2013 from Last 3 Months or Most Recently Relevant to Health Maintenance Results * PAP IMAGE-GUIDED LIQUID BASE W HPV (04/19/2013) Endocervical 04/19/[address] [facility] - 04/25/2013 10:46 AM AGRICULTURE SCIENTIST LMP->04/15/13 Marty German MD LAB - PATHOLOGY/CYT OLOGY ORDERABLES Performing Organization Address City/State/[facility] Co de Phone Number [facility] [address] [place] [address], [facility] from Last 3 Months or Most Recently Relevant to Health Maintenance Care Teams French Drawer Relationship Specialty Start Date End Date Kj Winters MD [address] [place] [address] PCP - General Internal Medicine 04/20/13
--- OUTSIDE RECORDS SUMMARY | 2024-09-04 17:55 | XMS_ITS | Patient Health Summary ---
Author Organization [facility] Address [address] [place] [address] Care Team Providers Care Packer Dried Beef Name Role Phone Kj Winters MD Primary Care Provider [phone] Note from [facility],non-owned Affiliates and Associated Physician Practices is amultiple site organization consisting of ambulatory clinics and hospital sitesin [place], [place], [place] and [place]. This disclosure is being madepursuant to the Care Everywhere program and may not contain all information available regarding this patient. Last updated 18.[facility] Allergies No known active allergies Social History [...] Mass Index 27.96 03/25/2015 1:09 PM CDT Procedures * HCG BETA BLOOD QUANTITATIVE(Performed 01/17/2015) * CULTURE STREP GROUP A(Performed 03/11/2014) * FL HYSTEROSALPINGOGRAM(Performed 04/20/2013) Performed for Fertility testing * HCG URINE QUALITATIVE - POINT OF CARE(Performed 04/20/2013) * PAP IMAGE-GUIDED W HPV(Performed 04/19/2013) * PATHOLOGY/GENETICS HISTORICAL-ONBASE(Performed 04/19/2013) * XR TOE RIGHT 2VW OR MORE(Performed 05/16/2012) Results * HCG BETA BLOOD QUANTITATIVE (01/17/2015 9:12 AM CDT) hCG Quantitative <1 mIU/mL [facility] ([place]) Comment: Female (Non-) 0 - 5 (Postmenopausal) 0 - 8 Female () Weeks of Gestation 3 6 - 71 4 10 - 750 5 526 - 6263 6 748 - [phone] 7 [phone] 8 [phone] 9 [phone] 10 20912 -[phone] 12 54309 -[phone] 14 88952 - 26327 15 49331 - 63568 16 3319 - 34547 17 4828 - 10252 18 5148 - [phone] Eliseo ECLIA methodology Blood specimen (specimen) BLOOD SPECIMEN / Unknown 01/17/2015 9:12 AM CDT 01/17/2015 1:11 PM CDT Narrative [facility] ([facility]) - 01/18/2015 7:19 AM CDT Performed at: [address] [place] [id number] Signal Timer: Milton Tamez PhD, Phone: [phone] Marty German MD LAB - CHEMISTRY ORD ERABLES [facility]) * CULTURE STREP GROUP A (03/11/2014 11:45 AM CDT) Pathologist [facility] Culture Beta Strep No Growth of Groups A, C or G Beta Streptococc us. [facility] Throat swab (specimen) ENTIRE THROAT (SURFACE REGION OF NECK) / Unknown 03/11/2014 11:45 AM CDT 03/11/2014 8:53 PM CDT Narrative [facility] - 03/14/2014 12:41 PM CDT EpiSpecimen#[id number] Epi Loc/Rm/Bed: EXPCARE G// Historical Provider LAB - MICROBIOLOG Y ORDERABLES [facility] [address] [place] [address], [facility] [phone] * FL HYSTEROSALPINGOGRAM (04/20/2013 2:03 PM CDT) Anatomical Region Laterality Modality Abdomen, Pelvis Radio Fluoroscop y 04/20/2013 2:13 PM CDT Narrative 04/20/2013 2:16 PM CDT Hysterography History: Fertility testing. Technique: Fluoroscopy was provided for hysterosalpingogram. Findings: The uterus and right fallopian tube are normal with normal spillage in the right fallopian tube. There is abnormal enlargement of the distal portion of the left fallopian tube without evidence of free spillage. Edited by Mikala Das on 04/20/2013 2:15 PM Procedure Note Filemon Card MD - 04/20/2013 Hysterography History: Fertility testing. Technique: Fluoroscopy was provided for hysterosalpingogram. Findings: The uterus and right fallopian tube are normal with normal spillage in the right fallopian tube. There is abnormal enlargement of the distal portion of the left fallopian tube without evidence of free spillage. Edited by Mikala Das on 04/20/2013 2:15 PM Marty German MD FLUOROSCOPY ORDERAB LES * HCG URINE QUALITATIVE - POINT OF CARE (IP) (04/20/2013 1:54 PM CDT) HCG Qual Urine Negative Negative [facility] POCT TESTING QC Verified yes Yes [facility] POC T TESTING Urine specimen (specimen) URINE / Unknown 04/20/2013 1:54 PM CDT Marty German MD LAB - POINT OF CARE ORDERABLES [facility] POCT TESTING [address] [place] [address] * PATHOLOGY/GENETICS HISTORICAL-ONBASE (04/19/2013) 04/19/2013 Narrative [facility] - 04/26/2013 12:50 PM SMALL PACKAGE AND BUNDLE SORTER CLERK Marty German MD LAB - CHEMISTRY ORD ERABLES Performing Organization Address [facility] Co de Phone Number [facility] [address] [place] [address], [facility] * PAP IMAGE-GUIDED LIQUID BASE W HPV (04/19/2013) Endocervical 04/19/2013 Narrative [facility] - 04/25/2013 10:46 AM SMALL PACKAGE AND BUNDLE SORTER CLERK LMP->04/15/13 Matry German MD LAB - PATHOLOGY/CYT OLOGY ORDERABLES Performing Organization Address [facility] Co de Phone Number [facility] [address] [place] [address], [facility] * XR TOE RIGHT 2VW OR MORE (05/16/2012 9:07 AM SMALL PACKAGE AND BUNDLE SORTER CLERK) Anatomical Region Laterality Modality Ankle / Foot Other Impressions 05/16/2012 12:09 PM SMALL PACKAGE AND BUNDLE SORTER CLERK Impression: No acute osseous injury. Report dictated by Guillermo So MD (interventional radiology rn). This report was approved by Guillermo So on 05/16/2012 9:[address] MADISON Giordano M.D. have personally reviewed and interpreted this examination/study. This report was electronically signed by MADISON LAYNE M.D. on 05/16/2012 12:09 PM . Narrative 05/16/2012 12:09 PM SMALL PACKAGE AND BUNDLE SORTER CLERK Exam: Right Foot, 3 views Date: 05/16/12 History: injury Comparison: None available Findings: There is no fracture or dislocation. The joint spaces are normal. No evidence of any foreign body. There is no soft tissue swelling. Procedure Note Madison Layne MD - 09/19/2017 Exam: Right Foot, 3 views Date: 05/16/12 History: injury Comparison: None available Findings: There is no fracture or dislocation. The joint spaces are normal. Noevidence of any foreign body. There is no soft tissue swelling. IMPRESSION Impression: No acute osseous injury. Report dictated by Guillermo So MD (interventional radiology rn). This report was approved by Guillermo So on 05/16/2012 9:[address] MADISON Giordano M.D. have personally reviewed and interpreted thisexamination/study. This report was electronically signed by MADISON LAYNE M.D. on 05/16/201212:09 PM . Robert Chambers MD DIAGNOSTIC IMAGING [facility] Care Teams Packer Dried Beef Relationship Specialty Start Date End Date Kj Winters MD [address] [place] [address] PCP - General Internal Medicine 04/20/13
--- OUTSIDE RECORDS SUMMARY | 2024-09-04 18:27 | XMS_ITS | Patient Health Summary ---
Author Organization [facility] Address [address] [place] [address] Care Team Providers Care Flight Paramedic Name Role Phone Kj Winters MD Primary Care Provider [phone] Note from [facility][note 3],non-owned Affiliates and Associated Physician Practices is amultiple site organization consisting of ambulatory clinics and hospital sitesin [place], [place], [place] and [place]. This disclosure is being madepursuant to the Care Everywhere program and may not contain all information available regarding this patient. Last updated 18.[facility] Allergies No known active allergies Social [...] 9:12 AM CDT) hCG Quantitative <1 mIU/mL [facility] ([facility]) Comment: Female (Non-) 0 - 5 (Postmenopausal) 0 - 8 Female () Weeks of Gestation 3 6 - 71 4 10 - 750 5 335 - 3586 6 489 - [phone] 7 [phone] 8 [phone] 9 [phone] 10 [phone] 12 [phone] 14 [phone] - [phone] 15 18569 - 42039 16 6451 - [phone] 17 8049 - [phone] 18 [phone] Eliseo ECLIA methodology Blood specimen (specimen) BLOOD SPECIMEN / Unknown 01/17/2015 9:12 AM CDT 01/17/2015 1:11 PM CDT Narrative [facility] ([facility]) - 01/18/2015 7:19 AM CDT Performed at: [address] [place] [id number] Sales Force Developer: Milton Tamez PhD, Phone: [phone] Marty German MD LAB - CHEMISTRY ORD ERABLES [facility]) * CULTURE STREP GROUP A (03/11/2014 11:45 AM CDT) Pathologist [facility] Culture Beta Strep No Growth of Groups A, C or G Beta Streptococc us. [facility] Throat swab (specimen) ENTIRE THROAT (SURFACE REGION OF NECK) / Unknown 03/11/2014 11:45 AM CDT 03/11/2014 8:53 PM CDT Narrative [facility] - 03/14/2014 12:41 PM CDT EpiSpecimen#[id number] Epi Loc/Rm/Bed: EXPCARE G// Historical Provider LAB - MICROBIOLOG Y ORDERABLES [facility] [address] [place] [address], [facility] [phone] * [place] HYSTEROSALPINGOGRAM (04/20/2013 2:03 PM CDT) [...] OF CARE ORDERABLES [facility] [address] [place] [address] * PATHOLOGY/GENETICS HISTORICAL-ONBASE (04/19/2013) 04/19/2013 Narrative [facility] - 04/26/2013 12:50 PM INK GRINDER Marty German MD LAB - CHEMISTRY ORD ERABLES Performing Organization Address [facility] Co de Phone Number [facility] [address] [place] [address], [facility] * PAP IMAGE-GUIDED LIQUID BASE W HPV (04/19/2013) Endocervical 04/19/2013 Narrative [facility] - 04/25/2013 10:46 AM INK GRINDER LMP->04/15/13 Marty German MD LAB - PATHOLOGY/CYT OLOGY ORDERABLES Performing Organization Address [facility] Co de Phone Number [facility] [address] [place] [address], [facility] * XR TOE RIGHT 2VW OR MORE (05/16/2012 9:07 AM INK GRINDER) Anatomical Region Laterality Modality Ankle / Foot Other Impressions 05/16/2012 12:09 PM INK GRINDER Impression: No acute osseous injury. Report dictated by Guillermo So MD (hvac technician residential). This report was approved by Guillermo So on 05/16/2012 9:[address] MADISON Giordano M.D. have personally reviewed and interpreted this examination/study. This report was electronically signed by MADISON LAYNE M.D. on 05/16/2012 12:09 PM . Narrative 05/16/2012 12:09 PM INK GRINDER Exam: Right Foot, 3 views Date: 05/16/12 [...] injury. Report dictated by Guillermo So MD (hvac technician residential). This report was approved by Guillermo So on 05/16/2012 9:[address] MADISON Giordano M.D. have personally reviewed and interpreted thisexamination/study. This report was electronically signed by MADISON LAYNE M.D. on 05/16/201212:09 PM . Robert Chambers MD DIAGNOSTIC IMAGING O [facility] Care Teams Flight Paramedic Relationship Specialty Start Date End Date Kj Winters MD [address] [place] [id number] PCP - General Internal Medicine 04/20/13
--- OUTSIDE RECORDS SUMMARY | 2024-09-04 18:27 | XMS_ITS | Referral Summary ---
Author Organization [facility] Address [address] [place] [address] Care Team Providers Care Drilling And Production Superintendent Name Role Phone Kj Winters MD Primary Care Provider [phone] Source Comments [facility],non-owned Affiliates and Associated Physician Practices is amultiple site organization consisting of ambulatory clinics and hospital sitesin [place], [place], [place] and [place]. This disclosure is being madepursuant to the Care Everywhere program and may not contain all information available regarding this patient. Last updated 18.[facility] [email or web address] Allergies No known active allergies Social History [...] BASE W HPV (04/19/2013) Endocervical 04/19/2013 Narrative [facility] - 04/25/2013 10:46 AM DISABILITY PROGRAM NAVIGATOR LMP->04/15/13 Marty German MD LAB - PATHOLOGY/CYT OLOGY ORDERABLES [facility] [address] [place] [address], [facility] from Last 3 Months or Most Recently Relevant to Health Maintenance Care Teams Drilling And Production Superintendent Relationship Specialty Start Date End Date Kj Winters MD [address] [place] [id number] PCP - General Internal Medicine 04/20/13
--- OUTSIDE RECORDS SUMMARY | 2024-09-04 18:27 | XMS_ITS | Clinical Summary ---
Author Organization [facility] Address [address] [place] [address] Care Team Providers Care Jewel Supervisor Name Role Phone Kj Winters MD Primary Care Provider [phone] Source Comments [facility],non-owned Affiliates and Associated Physician Practices is amultiple site organization consisting of ambulatory clinics and hospital sitesin [place], [place], [place] and [place]. This disclosure is being madepursuant to the Care Everywhere program and may not contain all information available regarding this patient. 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
[2024-09-04] MEDS: TETANUS,DIPHTHERIA,AC PERTUSSIS ADULT (0.5 ML) BOOSTRIX IM (18:51)
[2024-09-04 18:59] LABS: Basophils Percent Auto 0.5 % (0.2-1.2); Hematocrit 38.6 % (37.0-47.0); Hemoglobin 12.9 g/dL (12.0-15.0); Immature Granulocyte Absolute 0.05 K/mm3 (0.00-0.031); Immature Granulocyte Percent A 1.3 % (0-0.5); Lymphocytes Absolute Auto 1.39 K/mm3 (0.9-3.2); Lymphocytes Percent Auto 34.8 % (18.3-44.2); Mean Corpuscular HGB Conc 33.4 g/dl (32-36); Mean Corpuscular Hemoglobin 32.2 pg (26-34); Mean Corpuscular Volume 96.3 fl (80-100); Mean Platelet Volume 8.3 fl (7.4-10.4); Monocytes Absolute Auto 0.4 K/mm3 (0.1-0.6); Monocytes Percent Auto 8.8 % (2.6-8.5); Neutrophils Absolute Auto 2.2 K/mm3 (1.3-6.7); Neutrophils Percent Auto 54.6 % (45.5-73.1); Platelet Count Result 216 k/mm3 (150-375); Red Blood Count 4.01 M/mm3 (4.2-5.4); Red Cell Distribution Width 12.4 % (11.5-14.5)
[2024-09-04 19:09] LABS: Alanine Aminotransferase 37 U/L (6-35); Albumin Level 4.2 g/dL (3.5-5.1); Alkaline Phosphatase 125 U/L (38-126); Anion Gap 11 mmol/L (4-12); Aspartate Amino Transferase 41 U/L (14-36); Bilirubin,Total 0.3 mg/dL (0.2-1.3); Blood Urea Nitrogen 15 mg/dL (7-17); Carbon Dioxide 24 mmol/L (22-30); Chloride 104 mmol/L (98-107); Estimated CRCL calculation 84 ml/min; Estimated Glomerular Filt Rate > 60; Glucose 97 mg/dL (65-110); Potassium 4.1 mmol/L (3.4-5.0); Sodium 139 mmol/L (137-145)
[2024-09-04 19:19] VITALS: BP 142/68; PULSE 89; RESP 16; TEMP 36.6; O2SAT 100
[2024-09-04 19:38] LABS: Influenza A QL RT-PCR Negative (Negative); Influenza B QL RT-PCR Positive (Negative); RSV RNA, RT-PCR Negative (Negative); SARS-CoV-2 RNA PCR Negative (Negative)
[2024-09-04 19:41] LABS: Lactic Acid Reflex < 0.5 mmol/L (0.7-2.0)
[2024-09-04] MEDS: AMPICILLIN SULB 3 GM/NS 100 ML 3 GM/100 ML VIAL IVPB (21:44)
[2024-09-04] MEDS: OSELTAMIVIR PHOSPHATE 75 MG CAPSULE PO (21:45)
[2024-09-04 22:01] VITALS: BP 139/64; PULSE 83; RESP 18; O2SAT 99
[2024-09-05] VITALS (8 sets, daily range): BP systolic 105–138; BP diastolic 49–77; PULSE 77–92; RESP 17–20; TEMP 36.2–36.8; O2SAT 98–100; BMI 29.9
--- NOTE | 2024-09-05 01:13 | ADMGEN ---
This patient, Adriana De Jesus, was admitted to [facility] Surg Room 312-01. Patient/family oriented to hospital policies and general routines including ID bracelet, bed and alarms, visiting hours, pain management, procedures, bathroom and other care routines, personal items, smoking policy, room service/diet, and visiting hours. Information on how to activate the Rapid Response Team has been discussed. Patient/Family are encouraged to report perceived risks to care and to ask questions if they do not understand what they are told or what they should do.
[2024-09-05] MEDS: AMPICILLIN SULB 3 GM/NS 100 ML 3 GM/100 ML VIAL IVPB ×4 (02:34→21:17)
[2024-09-05] MEDS: ACETAMINOPHEN 325 MG TABLET 650 MG PO (03:13)
[2024-09-05] MEDS: oxyCODONE HCL (*CRX) 5 MG TAB IR PO ×4 (07:51→21:19)
--- NOTE | 2024-09-05 08:06 | P.HP_ITS ---
H&P: HPI History of Present Illness Date/Time: 09/05/24 08:06 Chief Complaint: Dog bite Narrative: 48 years old lady with history of anxiety, hypothyroidism, present ED with a chief complaint of dog bite to her right arm on August 30, 2024. Patient did not receive treatment after the dog bite to her arm. Patient noticed a right arm become swollen and purulent discharge from the bite site. Therefore patient c todd to ED for evaluation treatment. Patient states she also has been having cough with phlegm in past 3 days. Patient has nasal congestion. Patient denies shortness breath chest pain, abdomen pain nausea vomiting diarrhea. Upon review ED patient was afebrile, blood pressure stable on the lower side no O2 desaturation on room air Patient leukopenia white blood cell 4000, immature granulocytes 1.3% abnormal high. Chemistry unremarkable except marginal high aminotransferase X-ray does not show acute acute osseous abnormality of the right elbow. Chest x-ray does not show acute cardiopulmonary issues. Viral screen positive for influenza B Patient received Unasyn and Tamiflu in the ED. We admit patient for further patient management Review of Systems Review of Systems: ROS negative except above PMFSH Past Medical History Medical History BMI 29.0-29.9,adult Periodic limb movement disorder Closed extra-articular fracture of distal end of left radius Anxiety Hypothyroidism Restless legs syndrome Surgical History Surgical History History of cholecystectomy 2015 Family History Family History Sibling Patient's sister is in good health Patient's brother is in good health Grandparent Cerebrovascular accident, Onset Age: 77 Family history of throat cancer, Onset Age: 85 Mother Family history of malignant neoplasm of breast in first degree relative Acute myocardial infarction Father Family history of mental disorder Family history of lymphoma Social History Social History (Updated 09/05/24 @ 01:51 by Rony Sanders RN) Smoking status: Never smoker Second hand tobacco smoke exposure: No Alcohol intake: never Substance use: never Substance use type: does not use Do You Feel Safe in your Home?: Yes Lack of Transportation: YES Lack of Food: Never True Current Housing: I Have Housing Concerned About Future Housing: No Difficulty Paying Gas/Electric Bills: No Difficulty Paying for Meds: No Currently Unemployed: No Education: Bachelor's Degree Difficulty w/ Childcare or Family Care: No Living arrangements: alone Additional living arrangements comments: Recently Occupation/Education: unemployed 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 Gender identity (if verbalized by the patient): Female Sexual Orientation (if Verbalized by the Patient): Straight or Heterosexual Spiritual care concerns: No Agree to blood products: Yes Meds Home Medications and Allergies Home Medications ?Medication ?Instructions ?Recorded ?Confirmed ?Type ibuprofen 600 mg tablet 600 mg PO TID #20 tabs 05/12/22 09/04/24 Rx buspirone 15 mg tablet 15 mg PO BID #180 tabs 06/05/24 09/04/24 Rx levothyroxine 125 mcg tablet 125 mcg PO DAILY #30 tabs 08/01/24 09/04/24 Rx trazodone 100 mg tablet See Rx Instructions .Route 08/07/24 09/04/24 Rx .COMPLEX #30 tabs clonazepam 1 mg tablet (Klonopin) 1.5 mg (1.5 x 1 mg) PO DAILY 08/11/24 09/04/24 Rx Restless leg syndrome #45 tabs alprazolam 0.5 mg tablet 0.5 mg PO TID PRN anxiety #90 tabs 08/18/24 09/04/24 Rx modafinil 200 mg tablet 200 mg PO BID #60 tabs 08/24/24 09/04/24 Rx Allergies Allergy/AdvReac Type Severity Reaction Status Date / Time latex Allergy Severe Rash Verified 09/04/24 19:13 naproxen Allergy Severe Itching Verified 09/04/24 19:13 and vomiting nickel Allergy Severe Rash Verified 09/04/24 19:13 adhesive tape AdvReac Intermediate Rash Verified 09/04/24 19:13 diphenhydramine (From AdvReac Intermediate rapid Verified 09/04/24 19:13 Benadryl) heart rate Vital Signs Vital Signs - 24 hr 09/04/24 15:39 09/04/24 19:19 09/04/24 22:01 Temperature 97.6 F 97.8 F Pulse Rate 105 H 89 83 Respiratory Rate 20 16 18 Blood Pressure 141/69 H 142/68 H 139/64 Pulse Oximetry 100 100 99 Oxygen Delivery 09/05/24 00:13 09/05/24 00:43 09/05/24 01:00 Temperature 98.3 F Pulse Rate 80 80 82 Respiratory Rate 17 17 18 Blood Pressure 136/69 136/69 138/76 Pulse Oximetry 100 100 100 Oxygen Delivery 09/05/24 02:56 09/05/24 05:55 Temperature 97.2 F L Pulse Rate 92 Respiratory Rate 20 Blood Pressure 105/49 L Pulse Oximetry 100 Oxygen Delivery Room Air Exam Narrative: GENERAL: Pleasant, in no acute distress. Well-nourished. - EYES: EOMI. Anicteric. - HENT: Moist mucous membranes. - LUNGS: Clear to auscultation bilateral ly, no wheezing, rhonchi, or rales. - CARDIOVASCULAR: Regular rate and rhyth m. No murmur. No JVD. - ABDOMEN: Soft, non-tender and non-dist ended. No palpable masses. - EXTREMITIES: No edema. Peripheral puls es 2+. Non-tender. - NEUROLOGIC: No focal neurological defi cits. CN II-XII grossly intact. - PSYCHIATRIC: Awake, Alert and oriented x 3. Appropriate mood and affect. - SKIN: Right arm swollen, open wound a nd some purulent discharge from median side of the right elbow - LYMPH: No cervical lymphadenopathy. H&P: Results Labs Labs: Short CBC 09/04/24 Range/Units 18:52 WBC 4.0 L (4.5-10.0) K/mm3 Hgb 12.9 (12.0-15.0) g/dL Hct 38.6 (37.0-47.0) % Plt Count 216 (150-375) k/mm3 [facility] 09/04/24 18:52 Sodium 139 Potassium 4.1 Chloride 104 Carbon Dioxide 24 BUN 15 D Creatinine 0.73 Glucose 97 Calcium 9.0 Liver Function 09/04/24 Range/Units 18:52 Total Bilirubin 0.3 (0.2-1.3) mg/dL AST 41 H (14-36) U/L ALT 37 H (6-35) U/L Alkaline Phosphatase 125 (38-126) U/L Albumin 4.2 (3.5-5.1) g/dL Assessment and Plan Assessment and plan (1) Anxiety: Code(s): F41.9 - Anxiety disorder, unspecified Status: Acute (2) Hypothyroidism: Qualifiers: Hypothyroidism type: acquired Qualified Code(s): E03.9 - Hypothyroidism, unspecified Code(s): E03.9 - Hypothyroidism, unspecified Status: Acute (3) Dog bite of right arm: Code(s): S41.151A - Open bite of right upper arm, initial encounter; W54.0XXA - Bitten by dog, initial encounter Status: Acute Plan Dog bite of right arm and wound infection Patient has purulent discharge from right arm Patient has leukopenia and neutrophil left shift Continue Unasyn IV, add clindamycin IV Consult wound care Optimize wound pain management Influenza B infection Continue Tamiflu 75 mg b.i.d. p.o. Hypothyroidism Continue Synthroid 125 mcg daily p.o. Follow-up TSH Anxiety Continue home medication Xanax 0.5 mg t.i.d. p.r.n., BuSpar 50 mg daily p.o., trazodone 100 mg q.h.s. bedtime p.r.n. Hospitalist MIPS Advance Care Plan I have confirmed that the patient's Advanced Care Plan is present, code status is documented, or surrogate decision maker is listed in patient medical record.: Yes Medication Reconciliation I have utilized all available resources to obtain, update and review the patients current medications (includes all prescriptions, OTC, herbals, cannabis, and nutritional supplements).: Yes
[2024-09-05] MEDS: busPIRone HCL 5 MG TABLET 15 MG PO ×2 (08:36→17:20)
[2024-09-05] MEDS: OSELTAMIVIR PHOSPHATE 75 MG CAPSULE PO ×2 (08:36→21:19)
[2024-09-05] MEDS: ALPRAZolam (*CRX) 0.5 MG TABLET PO ×3 (08:36→21:22)
[2024-09-05] MEDS: LEVOTHYROXINE SODIUM 125 MCG TABLET PO (08:36)
[2024-09-05] MEDS: IBUPROFEN 600 MG TABLET PO ×3 (08:37→17:20)
[2024-09-05] MEDS: CLINDAMYCIN 900 MG/D5W 50 ML 900 MG/50 ML PIGGYBACK 50 MG IVPB ×2 (10:18→17:20)
[2024-09-05] MEDS: MUPIROCIN 2% OINT 22 GM TUBE 1 APPLIC TOPICAL (15:49)
[2024-09-05] MEDS: traZODone HCL 50 MG TABLET PO (21:22)
[2024-09-06 00:44] LABS: Prolactin 6.4 ng/mL
[2024-09-06] MEDS: CLINDAMYCIN 900 MG/D5W 50 ML 900 MG/50 ML PIGGYBACK 50 MG IVPB ×3 (00:55→16:36)
[2024-09-06] MEDS: AMPICILLIN SULB 3 GM/NS 100 ML 3 GM/100 ML VIAL IVPB ×4 (02:06→20:39)
[2024-09-06] MEDS: LEVOTHYROXINE SODIUM 125 MCG TABLET PO (05:33)
[2024-09-06 06:00] VITALS: BP 122/71; PULSE 77; RESP 16; TEMP 37.1; O2SAT 100
--- NOTE | 2024-09-06 08:50 | P.PNIM_ITS ---
Progress Note: A&P Assessment and Plan (1) Anxiety: Code(s): F41.9 - Anxiety disorder, unspecified Status: Acute (2) Hypothyroidism: Qualifiers: Hypothyroidism type: acquired Qualified Code(s): E03.9 - Hypothyroidism, unspecified Code(s): E03.9 - Hypothyroidism, unspecified Status: Acute (3) Dog bite of right arm: Code(s): S41.151A - Open bite of right upper arm, initial encounter; W54.0XXA - Bitten by dog, initial encounter Status: Acute Plan Dog bite of right arm, wound infection, and cellulitis of the right arm Patient has purulent discharge from right arm Patient has leukopenia and neutrophil left shift Consult wound care Optimize wound pain management Less secretion from the bone, cellulitis improving. Continue Unasyn IV, add clindamycin IV Influenza B infection Continue Tamiflu 75 mg b.i.d. p.o. Still has cough and some phlegm. Hypothyroidism Continue Synthroid 125 mcg daily p.o. Follow-up TSH Anxiety Continue home medication Xanax 0.5 mg t.i.d. p.r.n., BuSpar 50 mg daily p.o., trazodone 100 mg q.h.s. bedtime p.r.n. Subjective Date/time seen: 09/06/24 08:50 Interval history: Patient is afebrile, blood pressure stable, cellulitis is improving. Patient has cough with phlegm, denies shortness breath, nausea vomiting Exam Narrative: GENERAL: Pleasant, in no acute distress. Well-nourished. - EYES: EOMI. Anicteric. - HENT: Moist mucous membranes. - LUNGS: Clear to auscultation bilateral ly, no wheezing, rhonchi, or rales. - CARDIOVASCULAR: Regular rate and rhyth m. No murmur. No JVD. - ABDOMEN: Soft, non-tender and non-dist ended. No palpable masses. - EXTREMITIES: No edema. Peripheral puls es 2+. Non-tender. - NEUROLOGIC: No focal neurological defi cits. CN II-XII grossly intact. - PSYCHIATRIC: Awake, Alert and oriented x 3. Appropriate mood and affect. - SKIN: Right arm swollen, open wound a nd some purulent discharge from median side of the right elbow - LYMPH: No cervical lymphadenopathy. Objective Data Vital Signs Vital Signs: Vital Signs - 24 hr 09/05/24 08:58 09/05/24 14:00 09/05/24 21:17 Temperature 98.0 F Pulse Rate 82 Respiratory Rate 20 Blood Pressure 126/74 Pulse Oximetry 98 100 Oxygen Delivery Room Air Room Air 09/05/24 21:55 09/06/24 06:00 Temperature 98.2 F 98.8 F Pulse Rate 77 77 Respiratory Rate 18 16 Blood Pressure 136/77 122/71 Pulse Oximetry 100 100 Oxygen Delivery Intake/Output Intake/Output: Intake & Output 09/03/24 09/04/24 09/05/24 09/06/24 23:59 23:59 23:59 23:59 Intake Total 100 1760 250 Output Total 600 Balance 100 1160 250 Meds/Results Medications: Active Medications Generic Name Dose Route Start Last Admin Trade Name Freq PRN Reason Stop Dose Admin Acetaminophen 650 mg 09/04/24 20:37 09/05/24 03:13 Acetaminophen 325 Mg Tablet PO 650 mg Q4H PRN Administration Mild Pain (1-3) or Fever Alprazolam 0.5 mg 09/05/24 08:12 09/05/24 21:22 Alprazolam (*Crx) 0.5 Mg Tablet PO 0.5 mg TID PRN Administration anxiety Buspirone HCl 15 mg 09/05/24 09:00 09/05/24 17:20 Buspirone Hcl 5 Mg Tablet PO 15 mg BID CYNTHIA Administration Ampicillin Sodium/Sulbactam Sodium 3 gm in 100 mls @ 200 mls/hr 09/05/24 03:00 09/06/24 03:06 Unasyn 3 Gm/Ns 100 Ml IVPB Infused Q6H CYNTHIA Infusion Clindamycin Phosphate 900 mg in 50 mls @ 50 mls/hr 09/05/24 09:00 09/06/24 01:55 Cleocin 900 Mg/D5w 50 Ml IVPB Infused Q8H CYNTHIA Infusion Ibuprofen 600 mg 09/05/24 09:00 09/05/24 17:20 Ibuprofen 600 Mg Tablet PO 600 mg TID CYNTHIA Administration Levothyroxine Sodium 125 mcg 09/05/24 08:25 09/06/24 05:33 Levothyroxine Sodium 125 Mcg Tablet PO 125 mcg DAILY@0630 CYNTHIA Administration Modafinil 200 mg 09/05/24 09:00 09/05/24 17:19 Modafinil (*Crx) 200 Mg Tablet PO Not Given BID CYNTHIA Mupirocin 1 applic 09/05/24 09:00 09/05/24 15:49 Mupirocin 2% Oint 22 Gm Tube TOPICAL 1 applic DAILY CYNTHIA Administration Oseltamivir Phosphate 75 mg 09/05/24 09:00 09/05/24 21:19 Oseltamivir Phosphate 75 Mg Capsule PO 09/10/24 08:59 75 mg Q12HR CYNTHIA Administration Oxycodone HCl 5 mg 09/05/24 07:37 09/05/24 21:19 Oxycodone Hcl (*Crx) 5 Mg Tab Ir PO 5 mg Q4H PRN Administration Pain Rated 7-10 Trazodone HCl 50 mg 09/05/24 08:15 09/05/24 21:22 Trazodone Hcl 50 Mg Tablet PO 50 mg HS PRN Administration Sleep Radiology Results: ITS Impressions Elbow X-Ray 09/04/24 16:18 IMPRESSION: No acute osseous abnormality of the right elbow. Chest X-Ray 09/04/24 20:48 IMPRESSION: No focal infiltrate or effusion. Labs Labs: Laboratory Results - last 24 hr 09/04/24 21:57 Prolactin 6.4
[2024-09-06] MEDS: MUPIROCIN 2% OINT 22 GM TUBE 1 APPLIC TOPICAL (09:08)
[2024-09-06] MEDS: IBUPROFEN 600 MG TABLET PO ×3 (09:09→16:36)
[2024-09-06] MEDS: OSELTAMIVIR PHOSPHATE 75 MG CAPSULE PO ×2 (09:09→20:40)
[2024-09-06] MEDS: oxyCODONE HCL (*CRX) 5 MG TAB IR PO (09:10)
[2024-09-06] MEDS: busPIRone HCL 5 MG TABLET 15 MG PO ×2 (09:12→16:36)
[2024-09-06] MEDS: ALPRAZolam (*CRX) 0.5 MG TABLET PO ×3 (09:13→22:01)
[2024-09-06 10:19] LABS: Anion Gap 15 mmol/L (4-12); Blood Urea Nitrogen 13 mg/dL (7-17); Calcium 9.2 mg/dL (8.4-10.2); Carbon Dioxide 23 mmol/L (22-30); Chloride 103 mmol/L (98-107); Estimated CRCL calculation 91 ml/min; Estimated Glomerular Filt Rate > 60; Glucose 109 mg/dL (65-110); Potassium 3.5 mmol/L (3.4-5.0); Sodium 141 mmol/L (137-145)
[2024-09-06 11:24] LABS: Basophils Absolute Auto 0.1 K/mm3 (0.0-0.1); Basophils Percent Auto 1.4 % (0.2-1.2); Eosinophils Percent Auto 0.2 % (0-4.4); Hematocrit 41.2 % (37.0-47.0); Hemoglobin 13.6 g/dL (12.0-15.0); Immature Granulocyte Absolute 0.16 K/mm3 (0.00-0.031); Immature Granulocyte Percent A 3.2 % (0-0.5); Lymphocytes Absolute Auto 2.52 K/mm3 (0.9-3.2); Lymphocytes Percent Auto 50.1 % (18.3-44.2); Mean Corpuscular Hemoglobin 31.3 pg (26-34); Mean Corpuscular Volume 94.9 fl (80-100); Mean Platelet Volume 8.5 fl (7.4-10.4); Monocytes Absolute Auto 0.4 K/mm3 (0.1-0.6); Monocytes Percent Auto 8.5 % (2.6-8.5); Neutrophils Absolute Auto 1.8 K/mm3 (1.3-6.7); Neutrophils Percent Auto 36.6 % (45.5-73.1); Platelet Count Result 292 k/mm3 (150-375); Red Blood Count 4.34 M/mm3 (4.2-5.4); Red Cell Distribution Width 12.1 % (11.5-14.5)
[2024-09-06 14:00] VITALS: BP 132/65; PULSE 90; RESP 20; TEMP 36.6; O2SAT 100
[2024-09-06 21:20] VITALS: BP 133/73; PULSE 83; RESP 16; TEMP 36.5; O2SAT 97
[2024-09-06] MEDS: traZODone HCL 50 MG TABLET PO (21:30)
[2024-09-07] MEDS: CLINDAMYCIN 900 MG/D5W 50 ML 900 MG/50 ML PIGGYBACK 50 MG IVPB ×3 (01:57→17:30)
[2024-09-07] MEDS: AMPICILLIN SULB 3 GM/NS 100 ML 3 GM/100 ML VIAL IVPB ×4 (03:54→22:20)
[2024-09-07 05:14] VITALS: BP 123/69; PULSE 78; RESP 16; TEMP 36.8; O2SAT 100
[2024-09-07] MEDS: LEVOTHYROXINE SODIUM 125 MCG TABLET PO (05:31)
[2024-09-07 06:22] LABS: Basophils Absolute Auto 0.1 K/mm3 (0.0-0.1); Eosinophils Percent Auto 0.4 % (0-4.4); Hematocrit 34.2 % (37.0-47.0); Hemoglobin 11.6 g/dL (12.0-15.0); Immature Granulocyte Absolute 0.19 K/mm3 (0.00-0.031); Immature Granulocyte Percent A 3.7 % (0-0.5); Lymphocytes Absolute Auto 2.02 K/mm3 (0.9-3.2); Lymphocytes Percent Auto 39.4 % (18.3-44.2); Mean Corpuscular HGB Conc 33.9 g/dl (32-36); Mean Corpuscular Volume 91.4 fl (80-100); Mean Platelet Volume 8.3 fl (7.4-10.4); Monocytes Absolute Auto 0.5 K/mm3 (0.1-0.6); Monocytes Percent Auto 10.5 % (2.6-8.5); Neutrophils Absolute Auto 2.3 K/mm3 (1.3-6.7); Platelet Count Result 267 k/mm3 (150-375); Red Blood Count 3.74 M/mm3 (4.2-5.4); White Blood Count 5.1 K/mm3 (4.5-10.0)
[2024-09-07 06:41] LABS: Anion Gap 11 mmol/L (4-12); Blood Urea Nitrogen 10 mg/dL (7-17); Calcium 8.5 mg/dL (8.4-10.2); Carbon Dioxide 27 mmol/L (22-30); Chloride 103 mmol/L (98-107); Estimated CRCL calculation 90 ml/min; Estimated Glomerular Filt Rate > 60; Glucose 98 mg/dL (65-110); Sodium 141 mmol/L (137-145)
[2024-09-07] MEDS: IBUPROFEN 600 MG TABLET PO ×3 (08:22→17:23)
[2024-09-07] MEDS: modafiniL (*CRX) 200 MG TABLET PO ×2 (08:22→17:23)
[2024-09-07] MEDS: MUPIROCIN 2% OINT 22 GM TUBE 1 APPLIC TOPICAL (08:22)
[2024-09-07] MEDS: ALPRAZolam (*CRX) 0.5 MG TABLET PO ×2 (08:22→22:25)
[2024-09-07] MEDS: busPIRone HCL 5 MG TABLET 15 MG PO ×2 (08:22→17:23)
[2024-09-07] MEDS: OSELTAMIVIR PHOSPHATE 75 MG CAPSULE PO ×2 (08:22→22:21)
--- NOTE | 2024-09-07 08:54 | P.PNIM_ITS ---
Progress Note: A&P Assessment and Plan (1) Anxiety: Code(s): F41.9 - Anxiety disorder, unspecified Status: Acute (2) Hypothyroidism: Qualifiers: Hypothyroidism type: acquired Qualified Code(s): E03.9 - Hypothyroidism, unspecified Code(s): E03.9 - Hypothyroidism, unspecified Status: Acute (3) Dog bite of right arm: Code(s): S41.151A - Open bite of right upper arm, initial encounter; W54.0XXA - Bitten by dog, initial encounter Status: Acute Plan Dog bite of right arm, wound infection, and cellulitis of the right arm Patient has purulent discharge from right arm Patient has leukopenia and neutrophil left shift Consult wound care Optimize wound pain management a little pus from the wound, cellulitis improving. Continue Unasyn IV, add clindamycin IV today change to oral abx tm Influenza B infection Continue Tamiflu 75 mg b.i.d. p.o. Still has cough and some phlegm. Hypothyroidism Continue Synthroid 125 mcg daily p.o. Follow-up TSH Anxiety Continue home medication Xanax 0.5 mg t.i.d. p.r.n., BuSpar 50 mg daily p.o., trazodone 100 mg q.h.s. bedtime p.r.n. Subjective Date/time seen: 09/07/24 08:54 Interval history: Patient is afebrile, blood pressure stable, cellulitis is improving no secretion from the open wound. Patient has cough with phlegm, denies shortness breath, nausea vomiting Exam Narrative: GENERAL: Pleasant, in no acute distress. Well-nourished. - EYES: EOMI. Anicteric. - HENT: Moist mucous membranes. - LUNGS: Clear to auscultation bilateral ly, no wheezing, rhonchi, or rales. - CARDIOVASCULAR: Regular rate and rhyth m. No murmur. No JVD. - ABDOMEN: Soft, non-tender and non-dist ended. No palpable masses. - EXTREMITIES: No edema. Peripheral puls es 2+. Non-tender. - NEUROLOGIC: No focal neurological defi cits. CN II-XII grossly intact. - PSYCHIATRIC: Awake, Alert and oriented x 3. Appropriate mood and affect. - SKIN: Swelling has resolved, cellulit is is improving, - LYMPH: No cervical lymphadenopathy. Objective Data Vital Signs Vital Signs: Vital Signs - 24 hr 09/06/24 14:00 09/06/24 21:20 09/07/24 05:14 Temperature 97.8 F 97.7 F 98.2 F Pulse Rate 90 83 78 Respiratory Rate 20 16 16 Blood Pressure 132/65 133/73 123/69 Pulse Oximetry 100 97 100 Intake/Output Intake/Output: Intake & Output 09/04/24 09/05/24 09/06/24 09/07/24 23:59 23:59 23:59 23:59 Intake Total 100 1760 1362 800 Output Total 600 1600 1300 Balance 100 8006 -492 -696 Meds/Results Medications: Active Medications Generic Name Dose Route Start Last Admin Trade Name Freq PRN Reason Stop Dose Admin Acetaminophen 650 mg 09/04/24 20:37 09/05/24 03:13 Acetaminophen 325 Mg Tablet PO 650 mg Q4H PRN Administration Mild Pain (1-3) or Fever Alprazolam 0.5 mg 09/05/24 08:12 09/07/24 08:22 Alprazolam (*Crx) 0.5 Mg Tablet PO 0.5 mg TID PRN Administration anxiety Buspirone HCl 15 mg 09/05/24 09:00 09/07/24 08:22 Buspirone Hcl 5 Mg Tablet PO 15 mg BID CYNTHIA Administration Ampicillin Sodium/Sulbactam Sodium 3 gm in 100 mls @ 200 mls/hr 09/05/24 03:00 09/07/24 08:21 Unasyn 3 Gm/Ns 100 Ml IVPB 200 mls/hr Q6H CYNTHIA Administration Clindamycin Phosphate 900 mg in 50 mls @ 50 mls/hr 09/05/24 09:00 09/07/24 02:57 Cleocin 900 Mg/D5w 50 Ml IVPB Infused Q8H CYNTHIA Infusion Ibuprofen 600 mg 09/05/24 09:00 09/07/24 08:22 Ibuprofen 600 Mg Tablet PO 600 mg TID CYNTHIA Administration Levothyroxine Sodium 125 mcg 09/05/24 08:25 09/07/24 05:31 Levothyroxine Sodium 125 Mcg Tablet PO 125 mcg DAILY@0630 CYNTHIA Administration Modafinil 200 mg 09/05/24 09:00 09/07/24 08:22 Modafinil (*Crx) 200 Mg Tablet PO 200 mg BID CYNTHIA Administration Mupirocin 1 applic 09/05/24 09:00 09/07/24 08:22 Mupirocin 2% Oint 22 Gm Tube TOPICAL 1 applic DAILY CYNTHIA Administration Oseltamivir Phosphate 75 mg 09/05/24 09:00 09/07/24 08:22 Oseltamivir Phosphate 75 Mg Capsule PO 09/10/24 08:59 75 mg Q12HR CYNTHIA Administration Oxycodone HCl 5 mg 09/05/24 07:37 09/06/24 09:10 Oxycodone Hcl (*Crx) 5 Mg Tab Ir PO 5 mg Q4H PRN Administration Pain Rated 7-10 Trazodone HCl 50 mg 09/05/24 08:15 09/06/24 21:30 Trazodone Hcl 50 Mg Tablet PO 50 mg HS PRN Administration Sleep Radiology Results: ITS Impressions Elbow X-Ray 09/04/24 16:18 IMPRESSION: No acute osseous abnormality of the right elbow. Chest X-Ray 09/04/24 20:48 IMPRESSION: No focal infiltrate or effusion. Labs Labs: Laboratory Results - last 24 hr 09/06/24 09/07/24 09:09 05:50 WBC 5.0 5.1 RBC 4.34 3.74 L Hgb 13.6 11.6 L Hct 41.2 34.2 L MCV 94.9 91.4 MCH 31.3 31.0 MCHC 33.0 33.9 RDW 12.1 12.0 Plt Count 292 267 MPV 8.5 8.3 Immature Gran % (Auto) 3.2 H 3.7 H Neut % (Auto) 36.6 L 45.0 L Lymph % (Auto) 50.1 H 39.4 [place] % (Auto) 8.5 10.5 H Eos % (Auto) 0.2 0.4 Baso % (Auto) 1.4 H 1.0 Lymph # (Auto) 2.52 2.02 [place] # (Auto) 0.4 0.5 Eos # (Auto) 0.0 0.0 Baso # (Auto) 0.1 0.1 Abs Immat Gran (auto) 0.16 H 0.19 H Absolute Neuts (auto) 1.8 2.3 Absolute Nucleated RBC 0.000 0.000 Nucleated RBC % 0.0 0.0 Sodium 141 141 Potassium 3.5 3.0 L Chloride 103 103 Carbon Dioxide 23 27 Anion Gap 15 H 11 BUN 13 10 Creatinine 0.67 L 0.68 L Estim Creat Clear Calc 91 90 Estimated GFR > 60 > 60 Glucose 109 98 Calcium 9.2 8.5
[2024-09-07 14:00] VITALS: BP 127/76; PULSE 96; RESP 16; TEMP 36.2; O2SAT 100
[2024-09-07 21:30] VITALS: BP 139/64; PULSE 80; RESP 18; TEMP 36.8; O2SAT 98
[2024-09-07] MEDS: traZODone HCL 50 MG TABLET PO (22:25)
[2024-09-07] MEDS: oxyCODONE HCL (*CRX) 5 MG TAB IR PO (22:38)
[2024-09-08 05:27] VITALS: BP 150/78; PULSE 90; RESP 16; TEMP 37.3; O2SAT 100
[2024-09-08 05:59] LABS: Basophils Absolute Auto 0.1 K/mm3 (0.0-0.1); Basophils Percent Auto 0.7 % (0.2-1.2); Eosinophils Percent Auto 0.5 % (0-4.4); Hematocrit 36.8 % (37.0-47.0); Hemoglobin 12.4 g/dL (12.0-15.0); Immature Granulocyte Absolute 0.23 K/mm3 (0.00-0.031); Immature Granulocyte Percent A 2.7 % (0-0.5); Lymphocytes Absolute Auto 2.64 K/mm3 (0.9-3.2); Lymphocytes Percent Auto 31.5 % (18.3-44.2); Mean Corpuscular HGB Conc 33.7 g/dl (32-36); Mean Corpuscular Volume 95.1 fl (80-100); Mean Platelet Volume 8.4 fl (7.4-10.4); Monocytes Absolute Auto 0.6 K/mm3 (0.1-0.6); Monocytes Percent Auto 7.3 % (2.6-8.5); Neutrophils Absolute Auto 4.8 K/mm3 (1.3-6.7); Neutrophils Percent Auto 57.3 % (45.5-73.1); Platelet Count Result 313 k/mm3 (150-375); Red Blood Count 3.87 M/mm3 (4.2-5.4); Red Cell Distribution Width 12.4 % (11.5-14.5); White Blood Count 8.4 K/mm3 (4.5-10.0)
[2024-09-08] MEDS: LEVOTHYROXINE SODIUM 125 MCG TABLET PO (06:02)
[2024-09-08 06:13] LABS: Anion Gap 11 mmol/L (4-12); Blood Urea Nitrogen 13 mg/dL (7-17); Carbon Dioxide 29 mmol/L (22-30); Chloride 101 mmol/L (98-107); Estimated CRCL calculation 84 ml/min; Estimated Glomerular Filt Rate > 60; Glucose 98 mg/dL (65-110); Potassium 3.1 mmol/L (3.4-5.0); Sodium 141 mmol/L (137-145)
--- NOTE | 2024-09-08 08:15 | P.PNIM_ITS ---
Progress Note: A&P Assessment and Plan (1) Anxiety: Code(s): F41.9 - Anxiety disorder, unspecified Status: Acute (2) Hypothyroidism: Qualifiers: Hypothyroidism type: acquired Qualified Code(s): E03.9 - Hypothyroidism, unspecified Code(s): E03.9 - Hypothyroidism, unspecified Status: Acute (3) Dog bite of right arm: Code(s): S41.151A - Open bite of right upper arm, initial encounter; W54.0XXA - Bitten by dog, initial encounter Status: Acute Plan Dog bite of right arm, wound infection, and cellulitis of the right arm Patient had purulent discharge from right arm, leukopenia and neutrophil left shift upon arrival Consult wound care Optimize wound pain management No wound is healing, cellulitis resolved. Received Unasyn IV, add clindamycin IV change to oral amoxicillin and doxycycline p.o. today Influenza B infection Continue Tamiflu 75 mg b.i.d. p.o. Symptoms improving, no dyspnea, continue Tamiflu 09/10 Hypothyroidism Continue Synthroid 125 mcg daily p.o. Follow-up TSH per PCP Anxiety Continue home medication Xanax 0.5 mg t.i.d. p.r.n., BuSpar 50 mg daily p.o., trazodone 100 mg q.h.s. bedtime p.r.n. Well controlled Subjective Date/time seen: 09/08/24 08:15 Interval history: Patient is afebrile, blood pressure stable, cellulitis resolved, wound is healing up, no pus. Patient has mild cough, denies shortness breath, nausea vomiting Exam Narrative: GENERAL: Pleasant, in no acute distress. Well-nourished. - EYES: EOMI. Anicteric. - HENT: Moist mucous membranes. - LUNGS: Clear to auscultation bilateral ly, no wheezing, rhonchi, or rales. - CARDIOVASCULAR: Regular rate and rhyth m. No murmur. No JVD. - ABDOMEN: Soft, non-tender and non-dist ended. No palpable masses. - EXTREMITIES: No edema. Peripheral puls es 2+. Non-tender. - NEUROLOGIC: No focal neurological defi cits. CN II-XII grossly intact. - PSYCHIATRIC: Awake, Alert and oriented x 3. Appropriate mood and affect. - SKIN: Swelling has resolved, cellulit is resolved, wound is healing up - LYMPH: No cervical lymphadenopathy. Objective Data Vital Signs Vital Signs: Vital Signs - 24 hr 09/07/24 14:00 09/07/24 21:30 09/07/24 22:38 Temperature 97.2 F L 98.2 F Pulse Rate 96 80 Respiratory Rate 16 18 Blood Pressure 127/76 139/64 Pulse Oximetry 100 98 Oxygen Delivery Room Air 09/08/24 05:27 Temperature 99.2 F Pulse Rate 90 Respiratory Rate 16 Blood Pressure 150/78 H Pulse Oximetry 100 Oxygen Delivery Intake/Output Intake/Output: Intake & Output 09/05/24 09/06/24 09/07/24 09/08/24 23:59 23:59 23:59 23:59 Intake Total 1760 1362 3780 550 Output Total 600 1600 2200 600 Balance 1160 -238 1580 -50 Meds/Results Medications: Active Medications Generic Name Dose Route Start Last Admin Trade Name Freq PRN Reason Stop Dose Admin Acetaminophen 650 mg 09/04/24 20:37 09/05/24 03:13 Acetaminophen 325 Mg Tablet PO 650 mg Q4H PRN Administration Mild Pain (1-3) or Fever Alprazolam 0.5 mg 09/05/24 08:12 09/07/24 22:25 Alprazolam (*Crx) 0.5 Mg Tablet PO 0.5 mg TID PRN Administration anxiety Amoxicillin/Clavulanate Potassium 1 tablet 09/08/24 09:00 Amoxicillin/Clavulanate K 875-125 Mg Tab PO 09/14/24 21:01 Q12HR CYNTHIA Buspirone HCl 15 mg 09/05/24 09:00 09/07/24 17:23 Buspirone Hcl 5 Mg Tablet PO 15 mg BID CYNTHIA Administration Doxycycline Hyclate 100 mg 09/08/24 09:00 Doxycycline Hyclate 100 Mg Tablet PO 09/14/24 21:01 Q12HR CYNTHIA Ibuprofen 600 mg 09/05/24 09:00 09/07/24 17:23 Ibuprofen 600 Mg Tablet PO 600 mg TID CYNTHIA Administration Levothyroxine Sodium 125 mcg 09/05/24 08:25 09/08/24 06:02 Levothyroxine Sodium 125 Mcg Tablet PO 125 mcg DAILY@0630 CYNTHIA Administration Modafinil 200 mg 09/05/24 09:00 09/07/24 17:23 Modafinil (*Crx) 200 Mg Tablet PO 200 mg BID CYNTHIA Administration Mupirocin 1 applic 09/05/24 09:00 09/07/24 08:22 Mupirocin 2% Oint 22 Gm Tube TOPICAL 1 applic DAILY CYNTHIA Administration Oseltamivir Phosphate 75 mg 09/05/24 09:00 09/07/24 22:21 Oseltamivir Phosphate 75 Mg Capsule PO 09/10/24 08:59 75 mg Q12HR CYNTHIA Administration Oxycodone HCl 5 mg 09/05/24 07:37 09/07/24 22:38 Oxycodone Hcl (*Crx) 5 Mg Tab Ir PO 5 mg Q4H PRN Administration Pain Rated 7-10 Trazodone HCl 50 mg 09/05/24 08:15 09/07/24 22:25 Trazodone Hcl 50 Mg Tablet PO 50 mg HS PRN Administration Sleep Radiology Results: ITS Impressions Elbow X-Ray 09/04/24 16:18 IMPRESSION: No acute osseous abnormality of the right elbow. Chest X-Ray 09/04/24 20:48 IMPRESSION: No focal infiltrate or effusion. Labs Labs: Laboratory Results - last 24 hr 09/07/24 09/08/24 05:50 05:17 WBC 5.1 8.4 RBC 3.74 L 3.87 L Hgb 11.6 L 12.4 Hct 34.2 L 36.8 L MCV 91.4 95.1 MCH 31.0 32.0 MCHC 33.9 33.7 RDW 12.0 12.4 Plt Count 267 313 MPV 8.3 8.4 Immature Gran % (Auto) 3.7 H 2.7 H Neut % (Auto) 45.0 L 57.3 Lymph % (Auto) 39.4 31.5 [place] % (Auto) 10.5 H 7.3 Eos % (Auto) 0.4 0.5 Baso % (Auto) 1.0 0.7 Lymph # (Auto) 2.02 2.64 [place] # (Auto) 0.5 0.6 Eos # (Auto) 0.0 0.0 Baso # (Auto) 0.1 0.1 Abs Immat Gran (auto) 0.19 H 0.23 H Absolute Neuts (auto) 2.3 4.8 Absolute Nucleated RBC 0.000 0.000 Nucleated RBC % 0.0 0.0 Sodium 141 Potassium 3.1 L Chloride 101 Carbon Dioxide 29 Anion Gap 11 BUN 13 Creatinine 0.73 Estim Creat Clear Calc 84 Estimated GFR > 60 Glucose 98 Calcium 9.0
--- NOTE | 2024-09-08 08:19 | P.DS_ITS ---
DS: Admitting Diagnosis Discharge Date 09/08 Admitting Diagnosis (1) Anxiety: Code(s): F41.9 - Anxiety disorder, unspecified Status: Acute (2) Hypothyroidism: Qualifiers: Hypothyroidism type: acquired Qualified Code(s): E03.9 - Hypothyroidism, unspecified Code(s): E03.9 - Hypothyroidism, unspecified Status: Acute (3) Dog bite of right arm: Code(s): S41.151A - Open bite of right upper arm, initial encounter; W54.0XXA - Bitten by dog, initial encounter Status: Acute DS: Discharge Diagnosis Discharge Diagnosis (1) Anxiety: Code(s): F41.9 - Anxiety disorder, unspecified Status: Acute (2) Hypothyroidism: Qualifiers: Hypothyroidism type: acquired Qualified Code(s): E03.9 - Hypothyroidism, unspecified Code(s): E03.9 - Hypothyroidism, unspecified Status: Acute (3) Dog bite of right arm: Code(s): S41.151A - Open bite of right upper arm, initial encounter; W54.0XXA - Bitten by dog, initial encounter Status: Acute DS: Summary Hospital Course Hospital Course: 48 years old lady with history of anxiety, hypothyroidism, present ED with a chief complaint of dog bite to her right arm on August 30, 2024. Patient did not receive treatment after the dog bite to her arm. Patient noticed a right arm become swollen and purulent discharge from the bite site. Therefore patient came to ED for evaluation treatment. Patient states she also has been having cough with phlegm in past 3 days. Patient has nasal congestion. Patient denies shortness breath chest pain, abdomen pain nausea vomiting diarrhea. Upon review ED patient was afebrile, blood pressure stable on the lower side no O2 desaturation on room air Patient leukopenia white blood cell 4000, immature granulocytes 1.3% abnormal high. Chemistry unremarkable except marginal high aminotransferase X-ray does not show acute acute osseous abnormality of the right elbow. Chest x-ray does not show acute cardiopulmonary issues. Viral screen positive for influenza B Patient received Unasyn and Tamiflu in the ED. We admit patient for further patient management The following med issues have been addressed during hospitalization Dog bite of right arm, wound infection, and cellulitis of the right arm Patient had purulent discharge from right arm, leukopenia and neutrophil left shift upon arrival Consult wound care Optimize wound pain management No wound is healing, cellulitis resolved. Received Unasyn IV, add clindamycin IV change to oral amoxicillin and doxycycline p.o. today Influenza B infection Continue Tamiflu 75 mg b.i.d. p.o. Symptoms improving, no dyspnea, continue Tamiflu 09/10 Hypothyroidism Continue Synthroid 125 mcg daily p.o. Follow-up TSH per PCP Anxiety Continue home medication Xanax 0.5 mg t.i.d. p.r.n., BuSpar 50 mg daily p.o., trazodone 100 mg q.h.s. bedtime p.r.n. Well controlled Time Spent with Patient Time attestation: Total time spent providing and/or coordinating discharge services: Exam Narrative: GENERAL: Pleasant, in no acute distress. Well-nourished. - EYES: EOMI. Anicteric. - HENT: Moist mucous membranes. - LUNGS: Clear to auscultation bilateral ly, no wheezing, rhonchi, or rales. - CARDIOVASCULAR: Regular rate and rhyth m. No murmur. No JVD. - ABDOMEN: Soft, non-tender and non-dist ended. No palpable masses. - EXTREMITIES: No edema. Peripheral puls es 2+. Non-tender. - NEUROLOGIC: No focal neurological defi cits. CN II-XII grossly intact. - PSYCHIATRIC: Awake, Alert and oriented x 3. Appropriate mood and affect. - SKIN: Swelling has resolved, cellulit is resolved, wound is healing up - LYMPH: No cervical lymphadenopathy. DS: Data Data Completed and Pending Labs on day of discharge: Labs from last 24 hours 09/08/24 09/07/24 05:17 05:50 WBC 8.4 5.1 RBC 3.87 L 3.74 L Hgb 12.4 11.6 L Hct 36.8 L 34.2 L MCV 95.1 91.4 MCH 32.0 31.0 MCHC 33.7 33.9 RDW 12.4 12.0 Plt Count 313 267 MPV 8.4 8.3 Immature Gran % (Auto) 2.7 H 3.7 H Neut % (Auto) 57.3 45.0 L Lymph % (Auto) 31.5 39.4 [place] % (Auto) 7.3 10.5 H Eos % (Auto) 0.5 0.4 Baso % (Auto) 0.7 1.0 Lymph # (Auto) 2.64 2.02 [place] # (Auto) 0.6 0.5 Eos # (Auto) 0.0 0.0 Baso # (Auto) 0.1 0.1 Abs Immat Gran (auto) 0.23 H 0.19 H Absolute Neuts (auto) 4.8 2.3 Absolute Nucleated RBC 0.000 0.000 Nucleated RBC % 0.0 0.0 Sodium 141 Potassium 3.1 L Chloride 101 Carbon Dioxide 29 Anion Gap 11 BUN 13 Creatinine 0.73 Estim Creat Clear Calc 84 Estimated GFR > 60 Glucose 98 Calcium 9.0 Preliminary micro results at discharge 09/04/24 20:22 Blood Culture - Preliminary Blood 09/04/24 20:57 Blood Culture - Preliminary Blood Discharge Plan Discharge Attending physician on discharge: aakash Discharging Clinician: Jazmine Almonte Anticipated Discharge Date/Time: 09/08/24 09:19 Patient Disposition: Home, Self-Care Activity: as tolerated Diet: as tolerated and regular Patient Instructions: Antibiotic Form, Suicide Prevention (GEN) Patient Language: Mongolian Stand Alone Forms: General Discharge Information Follow-up/Referrals: Tyson Brantley APRN [Primary Care Provider] - (Patient needs to see primary care doctor in 1 week) Discharge Medications: New oseltamivir [Tamiflu] 75 mg Capsule 75 mg PO Q12HR Qty: 5 0RF doxycycline hyclate 100 mg Tablet 100 mg PO Q12HR Qty: 14 0RF amoxicillin-pot clavulanate 875-125 mg tablet 1 tablet PO Q12H Qty: 14 0RF Continued ibuprofen 600 mg tablet 600 mg PO TID Qty: 20 0RF levothyroxine 125 mcg tablet 125 mcg PO DAILY Qty: 30 6RF buspirone 15 mg tablet 15 mg PO BID Qty: 180 1RF trazodone 100 mg tablet See Rx Instructions .ROUTE .COMPLEX Qty: 30 5RF Dose Instruction: TAKE ONE TABLET BY MOUTH EVERY NIGHT AT BEDTIME NEEDED FOR FOR SLEEP Rx Instructions: TAKE ONE TABLET BY MOUTH EVERY NIGHT AT BEDTIME NEEDED FOR FOR SLEEP clonazepam [Klonopin] 1 mg tablet 1.5 mg PO DAILY Qty: 45 0RF alprazolam 0.5 mg tablet 0.5 mg PO TID PRN (Reason: anxiety) Qty: 90 0RF Rx Instructions: Fill on/after 08/19 modafinil 200 mg tablet 200 mg PO BID Qty: 60 0RF Date of admission: 09/06/24 15:15 Primary Care Provider: Tyson Brantley Admitting Provider: Anastasiya Can Attending physician on admission: Anastasiya Can Condition: Stable
[2024-09-08] MEDS: AMOXICILLIN/CLAVULANATE K 875-125 MG TAB 1 TABLET PO (09:32)
[2024-09-08] MEDS: modafiniL (*CRX) 200 MG TABLET PO (09:32)
[2024-09-08] MEDS: OSELTAMIVIR PHOSPHATE 75 MG CAPSULE PO (09:32)
[2024-09-08] MEDS: DOXYCYCLINE HYCLATE 100 MG TABLET PO (09:32)
[2024-09-08] MEDS: IBUPROFEN 600 MG TABLET PO (09:32)
[2024-09-08] MEDS: busPIRone HCL 5 MG TABLET 15 MG PO (09:33)
[2024-09-08] MEDS: MUPIROCIN 2% OINT 22 GM TUBE 1 APPLIC TOPICAL (09:36)
== END 2024-09-08 12:10 | disposition home or self-care (01) | DRG 383 ==
LOC: ANHED 21:06 → ANH3MEDSUR 21:24
PROVIDERS: Registered Nurse; Admitting Provider Internal Medicine; Emergency Provider Emergency Medicine; PCP Nurse Practitioner; Visit Provider Hospitalist
DX: L03.113 Cellulitis of right upper limb (principal); S41.151A Open bite of right upper arm, initial encounter; W54.0XXA Bitten by dog, initial encounter; J10.1 Influenza due to other identified influenza virus with other respiratory manifestations; E03.9 Hypothyroidism, unspecified; G25.81 Restless legs syndrome; Z90.49 Acquired absence of other specified parts of digestive tract; F41.8 Other specified anxiety disorders
CPT/HCPCS: 36415; 71045; 73080; 80048; 80053; 83605; 84146; 85025; 87040; 87637; 90471; 90715; 96365; 96366; 96367; 99212; 99285; A9270; G0378; G0379; G0463; J0295